=== PATIENT | male | born 1940 | race Caucasian/White ===

== ENCOUNTER → 2017-08-07 09:18 | Outpatient (CLI) | payer MEDICARE, OTHER, SELFPAY ==
[2017-08-07 10:13] LABS: PSA,Total- Diagnostic 2.21 ng/mL (0.0-4.0)
== END ==
PROVIDERS: Family Provider Family Medicine; PCP Family Medicine; Visit Provider Urology
DX: R97.20 Elevated prostate specific antigen [PSA] (principal)
CPT/HCPCS: 36415; 84153

== ENCOUNTER → 2017-10-17 08:33 | Outpatient (CLI) | payer MEDICARE, OTHER, SELFPAY ==
--- NOTE | 2017-10-17 13:00 | LES_PTH ---
PATIENT: EVAN HAMPTON LOC: [facility] U#:[id number] AGE/SX: 84/M ROOM: RE10/17/[address]: Dr. Barak Montero MD : 1940 BED: DIS: SPEC #: [id number] RECD: 10/18/17 11:48 STATUS: MIRELLA KINGA #: [id number] MIRIAN: 10/17/17 13:[address]: Barak Montero DEPT: SURGICAL PATHOLOGY RECD BY: Rusty Melvin ENTERED: 10/18/17 11:48 SP TYPE: Lesion OTHR DR: Dr. Emmanuel Montero III, MD Tissues: Skin of forearm, NOS Procedures: Surgery Specimen Level IV HEADER OPERATION: Excision left forearm lesion PRE-OP DIAGNOSIS: Left forearm lesion TISSUE SUBMITTED: Left forearm tissue MICROSCOPIC DIAGNOSIS Left forearm tissue, excisional biopsy: Focal dermal fibrosis, chronic inflammation and foreign body giant cell reaction, consistent with previous biopsy site. Actinic keratosis and solar elastosis. Negative for malignancy. KATJA:dusty 10/19/17 MICROSCOPIC DESCRIPTION Slides are reviewed. GROSS DESCRIPTION Received in fixative is one container labeled with the patient's name and designated left forearm. The specimen consists of a valdez-white skin ellipse measuring 3.7 x 1.5 cm and up to 0.5 cm in thickness. The specimen shows a valdez-white, flat healed scar measuring 0.6 x 0.2 cm. The specimen is serially sectioned and submitted entirely in three cassettes. Cassette one contains the tips of the skin ellipse. / KATJA:dusty 10/18/17 TC:5 CPT: 18843
== END ==
PROVIDERS: Family Provider Family Medicine; PCP Family Medicine; Visit Provider Surgery
DX: L90.5 Scar conditions and fibrosis of skin (principal); L57.0 Actinic keratosis; L57.8 Other skin changes due to chronic exposure to nonionizing radiation; W89.9XXA Exposure to unspecified man-made visible and ultraviolet light, initial encounter; Y92.9 Unspecified place or not applicable; Y99.9 Unspecified external cause status
CPT/HCPCS: 88305

== ENCOUNTER 2018-01-21 10:26 | Inpatient (IN) | payer MEDICARE, OTHER, SELFPAY ==
[2018-01-04 11:08] VITALS: BP 140/86; PULSE 67; RESP 17; TEMP 36.9; O2SAT 97; BMI 37.9
--- NOTE | 2018-01-04 11:41 | SDCEKG_ITS ---
Test Reason : Blood Pressure : / mmHG Vent. Rate : 058 BPM Atrial Rate : 058 BPM P-R Int : 202 ms QRS Dur : 092 ms QT Int : 430 ms P-R-T Axes : 031 003 005 degrees QTc Int : 422 ms Sinus bradycardia Cannot rule out Inferior infarct (cited on or before 22-JUN-2010) Abnormal ECG Confirmed by ELTON HUSTON, DEBBIE ([id number]), material expeditor TOR ESCOBAR ([id number]) on 01/07/2018 3:33:54 PM Referred By: Neftali Escobar Confirmed By:DEBBIE CONDE MD
[2018-01-21] VITALS (11 sets, daily range): BP systolic 113–153; BP diastolic 59–87; PULSE 57–66; RESP 16–18; TEMP 36.1–36.6; O2SAT 93–96; BMI 37.9
[2018-01-21] MEDS: Celecoxib 200 MG Capsule 400 MG PO (11:38)
[2018-01-21] MEDS: Acetaminophen 500 MG Tablet 1000 MG PO ×2 (11:38→22:02)
[2018-01-21] MEDS: oxyCODONE HCl Cr 10 MG Tablet PO (11:38)
[2018-01-21 12:35] LABS: Bedside Glucose 141 mg/dL (70-110)
--- NOTE | 2018-01-21 13:03 | PCM.CONS.U ---
Problem List (1) Underwood catheter in place Status: Acute Reason for Consult Date of Consultation: 01/21/18 Reason for Consultation: difficult underwood History of Present Illness: The patient is a 77 year old male who is having hip surgery request underwood placement, h/o penile cancer s/p partial penectomy v diff. underwood placement in the past. 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 Obesity (Chronic) E66.9 History of hypothyroidism (Chronic) Z86.39 GERD (gastroesophageal reflux disease) (Chronic) K21.9 Essential hypertension (Chronic) I10 Type II diabetes mellitus (Chronic) E11.9 Allergies No Known Allergies Allergy (Verified 01/04/18 11:01) Home Medications: Ambulatory Orders Medication Instructions Recorded Amlodipine [Norvasc] 10 mg PO DAILY 09/14/15 Bisoprol/Hydrochlorothiazide [Ziac 1 tab PO DAILY 09/14/15 10/6.25 MG Tablet] Finasteride [Proscar] 5 mg PO QHS 09/14/15 Lisinopril [Zestril] 40 mg PO DAILY 09/14/15 Omeprazole [Prilosec] 20 mg PO DAILY 09/14/15 Simvastatin [Zocor] 20 mg PO QHS 09/14/15 Tamsulosin HCl [Flomax] 0.4 mg PO DAILY 09/14/15 Venlafaxine HCl 75 mg PO QHS 09/14/15 levothyroxine 75 mcg tablet 100 mcg PO DAILY tab 09/04/17 Acetaminophen [Tylenol Extra 500 mg PO Q6H PRN PRN 01/04/18 Strength] Glimepiride [Amaryl] 2 mg PO DAILY 01/04/18 Surgical History: Surgical History (Last Updated 10/23/17 @ 15:45 by Aura Rojas) History of penile cancer (Acute) Z85.49 History of back surgery (Acute) Z98.890 11/2013 Status post right hip replacement (Acute) Z96.641 S/P rotator cuff repair (Acute) Z98.890 Right S/P cholecystectomy (Acute) Z90.49 S/p bilateral carpal tunnel release (Acute) Z98.890 s/p excision left forearm lesion Surgical History: cholecystectomy Smoking Status: Never smoker Review of Systems Constitutional: Denies: Chills, Fever, Weight Change HEENT: Denies: Head Aches, Sinus Congestion, Sinus Drainage Cardiovascular: Denies: Chest Pain, Palpitations Respiratory: Denies: Cough, Shortness of breath at rest, Sputum production Gastrointestinal: Denies: Abdominal Pain, Nausea, Vomiting Genitourinary: Denies: Dysuria Musculoskeletal: Denies: Joint Pain, Joint Tenderness Skin: Denies: Rash, Wounds Neurological: Denies: Numbness, Tingling, Focal weakness Psychiatric: Denies: Anxiety, Depression, Homicidal Ideations, Suicidal Ideations Hematologic/ Lymphatic: Denies: Easy Bruising, Easy Bleeding Physical Exam - Physical Exam Vital Signs Temp 97.8 F 01/21/18 11:30 Pulse 63 01/21/18 11:30 Resp 18 01/21/18 11:30 BP 153/87 H 01/21/18 11:30 Pulse Ox 95 01/21/18 11:30 Intake & Output 01/19/18 01/20/18 01/21/18 23:59 23:59 23:59 Weight: 103.4 kg General: Alert HEENT: Atraumatic Oral: Moist Mucosa Neck: Supple Lungs: Normal air movement Cardiovascular: Regular rate Abdomen: Soft Penis: - - partial penectomy, meatus small. Assessment/Plan All Active Problems (Last Updated 10/23/17 @ 15:45 by Aura Rojas) Underwood catheter in place (Acute) Squamous cell skin cancer (Acute) History of penile cancer (Acute) History of back surgery (Acute) Status post right hip replacement (Acute) S/P rotator cuff repair (Acute) S/P cholecystectomy (Acute) S/p bilateral carpal tunnel release (Acute) 14 fr underwood cath placed for surgery ok to d/c underwood post op once ambulatory. call with questions.
[2018-01-21] MEDS: Cefazolin 2 GM in 0.9% Normal Saline 100 ML IV (13:49)
--- NOTE | 2018-01-21 14:00 | HIP_PTH ---
PATIENT: EVAN HAMPTON LOC: [facility] U#:[id number] AGE/SX: 77/M ROOM: [facility] RE01/21/[address]: Dr. Sancho Hickman DO : 1940 BED: 1 DIS: 01/22/2018 SPEC #: [id number] RECD: 01/21/18 16:07 STATUS: MIRELLA REQ #: [id number] MIRIAN: 01/21/18 14:[address]: Neftali Escobar DEPT: SURGICAL PATHOLOGY RECD BY: Corby Madrid ENTERED: 01/22/18 08:29 SP TYPE: TOTAL HIP OTHR DR: MD Dr. Sancho Velásquez III, DO Dr. Nana Yaa Koram, MD Dr. Rodney Miller, MD Tissues: Hip, NOS Procedures: Decalcification bone/plaque Surgery Specimen Level IV Comments: @ Ordering doctor for DEC edited from to [email or web address] Diaz by BROOKLYN at 01/22/18 1556 @ Ordering doctor for SUIV edited from to @ by BROOKLYN at 01/22/18 1556 @ Submitting doctor edited from to [email or web address] Diaz by BROOKLYN at 01/22/18 1556 HEADER OPERATION: Left total hip arthroplasty PRE-OP DIAGNOSIS: Osteoarthritis left hip TISSUE SUBMITTED: Left femoral head bone and soft tissue MICROSCOPIC DIAGNOSIS Left femoral head, bone and soft tissue, total hemiarthroplasty: Femoral head with degenerative osteoarthritic changes. KATJA:dusty 01/25/18 MICROSCOPIC DESCRIPTION Slides are reviewed. GROSS DESCRIPTION Received is one container designated left femoral head bone and soft tissue. The specimen consists of a valdez femoral head with portion of femoral neck. The femoral head measures 5 x 5 x 4 cm and a portion of femoral neck measures up to 1 cm in length. The articular surface displays prominent osteophyte formation, eburnation and bone erosion. Also present in the specimen container are multiple irregular fragments of bone reamings measuring in aggregate 10 x 9 x 4 cm. Automotive Parts Counter Assistant sections are submitted in two cassettes after decalcification as follows: 1 ? bone reamings, 2 ? femoral head. / KATJA:dusty 01/22/18 TC:5 CPT: 87604, 89296
--- NOTE | 2018-01-21 15:16 | PCM.OP.BLANK ---
Operative Report Date of Procedure: 01/21/18 Preoperative diagnosis: Left hip primary osteoarthritis Postoperative diagnosis: Same Operation: Left total hip replacement surgery Surgeon: Dr. Neftali Escobar MD Manager Inventory: Loree Mojica PA-C Second public relations assistant Arlyn SAUCEDA Anesthesia: Spinal Anesthesiologist Dr. Almonte Special medications: IV [Ancef], IV Tranexamic acid Indications for surgery : Patient is a [ 77]-year-old [male] with a long-standing history of [left] severe hip pain that has failed adequate nonoperative treatment. Due to persistent pain and disability, they decided to proceed with hip replacement surgery. Appropriate informed consent was obtained and signed. Appropriate medical workup was performed preoperatively and patient was deemed safe for surgery by the anesthesia department as well. assistant women's basketball coach, physician public relations assistant, was utilized throughout the entire procedure. They were vital in helping with patient positioning, holding of retractors, exposing the tissues adequately for safe completion of the procedure including cutting of the bone, helping human resources operations specialist appropriate alignment and sizing of the components, implantation of the components, as well as wound closure, bandage application, and safe patient transfer. Without surgical corsetier, physician public relations assistant, surgical time would have been significantly increased, and surgical outcome would have been less optimal. Operative findings: Patient had severe arthritis of the involved hip joint. They underwent a small posterior approach to the hip. We utilized a size [2.5 press-fit Accolade stem] 127 degree neck angle, a press fit acetabular component size [52] titanium cluster, Trident X3 polyethylene liner with a 36 mm inner diameter, a LFIT femoral head size [36] with a +10 neck length. This reproduced their anatomy nicely. Clinically good leg lengths were noted. Good hip stability through range of motion with no undue pistoning. Standard wound closure in layers, followed by sarahy, followed by Mepilex dressing Details of procedure: Patient was taken to the operating room and transferred to the operating table. Given appropriate anesthetic agent by that department. Patient was then rolled into a lateral decubitus position with the involved painful hip up in the air. Appropriate timeouts had been performed. Hip had been appropriately marked with my initials. Padded anterior and posterior position was utilized. Axillary roll placed. LYNETTE hose and SCDs on the nonoperative limb utilized throughout the procedure. Tranexamic acid and IV antibiotics given preoperatively. Operative lower extremity was prepped padded and draped in the usual orthopedic sterile fashion for the procedure. I injected the pain relieving solution in the standard sterile technique of the soft tissues of the hip carefully. Incision was made curving over the tip of the greater trochanter posteriorly. Full thickness skin flaps are raised down on the fascia damir. Fascia damir was opened in length with our incision. Charnley self-retaining hip retractor was carefully placed by the surgeon. Leg was appropriately rotated and held by the public relations assistant. Retractor was used to lift the abductors anteriorly to visualize the piriformis tendon and external rotators. Area was infiltrated with pain relieving cocktail. Piriformis tendon and external rotators released off the greater trochanter with the Bovie. Tagging suture was placed in each of these separately. We then split the tissue superior to the piriformis tendon through capsule and onto the pelvis. Acetabular labrum was also divided. With traction and manipulation arthritic femoral head was dislocated from the acetabulum. Retractors were carefully placed around the femoral neck. Cutting guide was utilized to map out the proposed cut approximately 1 fingerbreadth above the lesser trochanter. This femoral neck cut was carried out with a saw. Arthritic femoral head removed and measured and inspected. Inferior acetabular retractor was placed by the surgeon, held by the public relations assistant. Bone hook utilized to pull the proximal femur anteriorly. Labrum removed from about the acetabulum a long knife. Tissue removed from the depth of the acetabulum with the Bovie. Arthritic acetabulum was noted. We began reaming with the appropriate sized reamer based on the measurement of the femoral head. Reaming was done with 45? of abduction, 20? of anteversion, reproducing there anatomy. Reaming was done incrementally up to the appropriate size creating a smooth cylindrical acetabulum and was done down to healthy bone. Trial acetabular component 1 millimeters smaller than the largest reamer was utilized with the outrigger device. Appropriate abduction and anteversion confirmed as well as size and position of cup. We irrigated with bulb syringe saline. Appropriate acetabular opponent was opened and hammered into position with the outrigger device, with 45? of abduction and 20 degrees of anteversion. We could see through the hole in the cup it was adequately down onto the bone in the pelvis. Good stability was noted. Trial liner with a 10? vasquez was appropriately positioned. Any anterior and/ or posterior osteophytes removed with an osteotome, rongure. Acetabular retractors removed. A proximal femoral elevator utilized. Held by the public relations assistant. We used a sharp awl entering down inside the bone of the proximal femur. Utilized the joo cutting osteotome in the proximal lateral greater trochanteric region. The fragment removed. Broaching was then done from the smallest broach, upto the appropriate size. Good stability was confirmed. We then trialed the construct with a standard neck length and appropriate sized femoral head on 127? angle neck. We were happy with the construct. Good stability to flexion, rotation by the public relations assistant. At this point trials removed. I now placed the appropriate polyethylene acetabular liner into a clean dry previously placed shell. This was hammered into position. Suction device was used to confirm its stability. We now exposed the proximal femur with appropriate retractors in place, held by the public relations assistant, actual femoral stem was checked, opened, and then hammered into the proximal femur and seated down to a similar position as the trial had. We now again trialed appropriate neck length upon. It was then opened. Now impacted the appropriate sized femoral head, neck construct onto the clean dried trunion. Was noted to be stable. Hip was inspected, and joint was reduced for a final time. Good hip stability and leg lengths noted. This was then irrigated with saline and cleaned. Next the remainder of the pain relieving solution was injected carefully throughout the soft tissues of the hip joint. Closure was carried out with a combination of #1 Vicryl, running #2 strata fix in the fascia damir, followed by mid layer #1 Vicryl with #1 strata fix running. Next running 0 strata fix, followed by skin sarahy, Xeroform, Mepilex dressing. We placed LYNETTE hose and SCD on the operative leg. Patient awoken from the anesthetic and transferred back to room bed in recovery room in satisfactory condition. Patient will be admitted for pain management, PT, IV antibiotics, medication for DVT prevention. Hospitalist consulted for postoperative medical management. Hopeful discharge to home in 1-3 days This note was generated with Triondation software. It may contain incorrect words, spelling, and punctuation that were not noted in checking the note before signing.
--- NOTE | 2018-01-21 15:22 | OP.PCM_ITS ---
Operative Report Date of Procedure: 01/21/18 Preoperative diagnosis: Left hip primary osteoarthritis Postoperative diagnosis: Same Operation: Left total hip replacement surgery Surgeon: Dr. Neftali Escobar MD Pearl Digger: Loree Mojica PA-C Second office services assistant Arlyn SAUCEDA Anesthesia: Spinal Anesthesiologist Dr. Almonte Special medications: IV [Ancef], IV Tranexamic acid Indications for surgery : Patient is a [ 77]-year-old [male] with a long- standing history of [left] severe hip pain that has failed adequate nonoperative treatment. Due to persistent pain and disability, they decided to proceed with hip replacement surgery. Appropriate informed consent was obtained and signed. Appropriate medical workup was performed preoperatively and patient was deemed safe for surgery by the anesthesia department as well. assistant manager bilingual, physician office services assistant, was utilized throughout the entire procedure. They were vital in helping with patient positioning, holding of retractors, exposing the tissues adequately for safe completion of the procedure including cutting of the bone, helping plastic parts fabricator appropriate alignment and sizing of the components, implantation of the components, as well as wound closure, bandage application, and safe patient transfer. Without surgical appliances salesperson, physician office services assistant, surgical time would have been significantly increased, and surgical outcome would have been less optimal. Operative findings: Patient had severe arthritis of the involved hip joint. They underwent a small posterior approach to the hip. We utilized a size [2.5 press-fit Accolade stem] 127 degree neck angle, a press fit acetabular component size [52] titanium cluster, Trident X3 polyethylene liner with a 36 mm inner diameter, a LFIT femoral head size [36] with a +10 neck length. This reproduced their anatomy nicely. Clinically good leg lengths were noted. Good hip stability through range of motion with no undue pistoning. Standard wound closure in layers, followed by sarahy, followed by Mepilex dressing Details of procedure: Patient was taken to the operating room and transferred to the operating table. Given appropriate anesthetic agent by that department. Patient was then rolled into a lateral decubitus position with the involved painful hip up in the air. Appropriate timeouts had been performed. Hip had been appropriately marked with my initials. Padded anterior and posterior position was utilized. Axillary roll placed. LYNETTE hose and SCDs on the nonoperative limb utilized throughout the procedure. Tranexamic acid and IV antibiotics given preoperatively. Operative lower extremity was prepped padded and draped in the usual orthopedic sterile fashion for the procedure. I injected the pain relieving solution in the standard sterile technique of the soft tissues of the hip carefully. Incision was made curving over the tip of the greater trochanter posteriorly. Full thickness skin flaps are raised down on the fascia damir. Fascia damir was opened in length with our incision. Charnley self-retaining hip retractor was carefully placed by the surgeon. Leg was appropriately rotated and held by the office services assistant. Retractor was used to lift the abductors anteriorly to visualize the piriformis tendon and external rotators. Area was infiltrated with pain relieving cocktail. Piriformis tendon and external rotators released off the greater trochanter with the Bovie. Tagging suture was placed in each of these separately. We then split the tissue superior to the piriformis tendon through capsule and onto the pelvis. Acetabular labrum was also divided. With traction and manipulation arthritic femoral head was dislocated from the acetabulum. Retractors were carefully placed around the femoral neck. Cutting guide was utilized to map out the proposed cut approximately 1 fingerbreadth above the lesser trochanter. This femoral neck cut was carried out with a saw. Arthritic femoral head removed and measured and inspected. Inferior acetabular retractor was placed by the surgeon, held by the office services assistant. Bone hook utilized to pull the proximal femur anteriorly. Labrum removed from about the acetabulum a long knife. Tissue removed from the depth of the acetabulum with the Bovie. Arthritic acetabulum was noted. We began reaming with the appropriate sized reamer based on the measurement of the femoral head. Reaming was done with 45? of abduction, 20? of anteversion, reproducing there anatomy. Reaming was done incrementally up to the appropriate size creating a smooth cylindrical acetabulum and was done down to healthy bone. Trial acetabular component 1 millimeters smaller than the largest reamer was utilized with the outrigger device. Appropriate abduction and anteversion confirmed as well as size and position of cup. We irrigated with bulb syringe saline. Appropriate acetabular opponent was opened and hammered into position with the outrigger device, with 45? of abduction and 20 degrees of anteversion. We could see through the hole in the cup it was adequately down onto the bone in the pelvis. Good stability was noted. Trial liner with a 10? vasquez was appropriately positioned. Any anterior and/ or posterior osteophytes removed with an osteotome, rongure. Acetabular retractors removed. A proximal femoral elevator utilized. Held by the office services assistant. We used a sharp awl entering down inside the bone of the proximal femur. Utilized the joo cutting osteotome in the proximal lateral greater trochanteric region. The fragment removed. Broaching was then done from the smallest broach, upto the appropriate size. Good stability was confirmed. We then trialed the construct with a standard neck length and appropriate sized femoral head on 127? angle neck. We were happy with the construct. Good stability to flexion, rotation by the office services assistant. At this point trials removed. I now placed the appropriate polyethylene acetabular liner into a clean dry previously placed shell. This was hammered into position. Suction device was used to confirm its stability. We now exposed the proximal femur with appropriate retractors in place, held by the office services assistant, actual femoral stem was checked, opened, and then hammered into the proximal femur and seated down to a similar position as the trial had. We now again trialed appropriate neck length upon. It was then opened. Now impacted the appropriate sized femoral head, neck construct onto the clean dried trunion. Was noted to be stable. Hip was inspected, and joint was reduced for a final time. Good hip stability and leg lengths noted. This was then irrigated with saline and cleaned. Next the remainder of the pain relieving solution was injected carefully throughout the soft tissues of the hip joint. Closure was carried out with a combination of #1 Vicryl, running #2 strata fix in the fascia damir, followed by mid layer #1 Vicryl with #1 strata fix running. Next running 0 strata fix, followed by skin sarahy, Xeroform, Mepilex dressing. We placed LYNETTE hose and SCD on the operative leg. Patient awoken from the anesthetic and transferred back to room bed in recovery room in satisfactory condition. Patient will be admitted for pain management, PT, IV antibiotics, medication for DVT prevention. Hospitalist consulted for postoperative medical management. Hopeful discharge to home in 1-3 days This note was generated with NebuAdation software. It may contain incorrect words, spelling, and punctuation that were not noted in checking the note before signing.
--- NOTE | 2018-01-21 16:24 | RAD_ITS ---
STUDY: X-RAY - PELVIS AND LEFT HIP REASON FOR EXAM: Male, 77 years old. Post op left hip arthroplasty TECHNIQUE: Radiological exam, hip, unilateral, with pelvis when performed; 2 or 3 views. COMPARISON: None. FINDINGS: There are postsurgical changes from bilateral total hip arthroplasties. The hardware is intact and alignment is satisfactory. There is no acute fracture or dislocation RAD/Hip Min 2 Views (Portable) IMPRESSION: Status post bilateral total hip arthroplasties with intact hardware in satisfactory alignment. Electronically Signed: Bryant Xiao, at 16:45 EDT Tel , Service support ,
[2018-01-21 17:06] LABS: Bedside Glucose 156 mg/dL (70-110)
[2018-01-21] MEDS: Tamsulosin HCl 0.4 MG Capsule PO (18:38)
[2018-01-21] MEDS: oxyCODONE 5 MG Tablet PO (18:38)
[2018-01-21 18:55] LABS: Bedside Glucose 180 mg/dL (70-110)
[2018-01-21] MEDS: Cefazolin 1 GM/50 ML BAG IV (19:44)
--- NOTE | 2018-01-21 20:36 | PCM.PN.HOSP ---
Patient Problems: Active and Suspected Problems (Last Updated 10/23/17 @ 15:45 by Aura Rojas) Kumar catheter in place (Acute) Subjective: Patient is a 77-year-old male with a past medical history of hypertension, type 2 diabetes mellitus, hypothyroidism, GERD, penile cancer status post penectomy and osteoarthritis. He was admitted for left hip surgery which he had on 01/21/2018. Hospitalist service was consulted for medical management afterwards. Today's postop day 0. Patient seen and examined in bed. He was with his and son at time of review. He had no complaints and felt well. He had no fever or chills, no shortness of breath, no cough or chest pain, no abdominal pain, no diarrhea vomiting. Review Of systems was otherwise negative. He had a Kumar catheter placed by urology today on account of difficult Kumar placement in the past. Vitals/I&O's: Vital Signs Temp Pulse Resp BP Pulse Ox 97.9 F 66 16 146/78 H 94 01/21/18 19:38 01/21/18 19:38 01/21/18 19:38 01/21/18 19:38 01/21/18 19:38 Oxygen Delivery Method Room Air Weight: 227 lb 15.327 oz Body Mass Index (BMI) 37.9 Finger Stick Blood Glucose 156 Intake and Output for Last 24 Hours 01/19/18 01/20/18 01/21/18 23:59 23:59 23:59 Intake Total 2400 / 2400 Output Total 70 / 70 Balance 2330 / 2330 General: Alert, Oriented x3, Cooperative, No apparent distress HEENT: Atraumatic, PERRLA, EOMI, Normocephalic Oral: Moist Mucosa Neck: Supple, No JVD, Negative Carotid Bruits Lungs: Clear to auscultation, Normal air movement, No rhonchi, No wheeze, No rales Cardiovascular: Regular rate, Regular Rhythm, Normal S1, Normal S2, No murmurs Abdomen: Bowel Sounds Present, Soft, Non Tender, Non-Distended, No Hepato-splenomegaly Extremities: No clubbing, No cyanosis, No edema, Capillary Refill Less than 3 Seconds Skin: No rashes, No breakdown Musculoskeletal: - - LLE bandaged. Able to wiggle toes, left dorsalis pedis pulse palpable Lymphatic: No Cervical, Supraclavicular, or Inguinal Adenopathy Neurological: Cranial nerves II-XII grossly intact Psych/Mental Status: Normal Affect, Appropriate, Alert and oriented to time, place, person, mood and affect Laboratory Results 01/21/18 11:33: POC Glucose 141 H 01/21/18 17:01: POC Glucose 156 H 01/21/18 18:20: POC Glucose 180 H Labs (Last 48 Hours) 01/21/18 01/21/18 01/21/18 11:33 17:01 18:20 POC Glucose 141 H 156 H 180 H Diagnostic Data Hip X-Ray 01/21/18 16:24 IMPRESSION: Status post bilateral total hip arthroplasties with intact hardware in satisfactory alignment. Electronically Signed: Bryant Xiao, at 16:45 EDT Tel , Service support , Current Medications Acetaminophen (Tylenol) 1,000 mg PO Q8 [facility] Amlodipine Besylate (Norvasc) 10 mg PO DAILY VILMA Atorvastatin Calcium (Lipitor) 10 mg PO QHS [facility] Bisoprolol Fumarate (Zebeta) 10 mg PO DAILY [facility] Finasteride (Proscar) 5 mg PO DAILY VILMA Glimepiride (Amaryl) 1 mg PO DAILY@0800 [facility] Hydrochlorothiazide (Hctz) 6.25 mg PO DAILY [facility] Lactated Ringer's () 1,000 mls @ 125 mls/hr IV .Q8H [facility] Cefazolin Sodium () 1 gm in 50 mls @ 100 mls/hr IV Q6H [facility] Stop: 01/22/18 08:29 Last Admin: 01/21/18 19:44 Dose: 100 mls/hr Ketorolac Tromethamine (Toradol) 15 mg IV Q6H PRN PRN PRN Reason: MILD-MOD PAIN (4-10/10) Stop: 01/26/18 18:22 Levothyroxine Sodium (Synthroid) 100 mcg PO DAILY@0600 [facility] Lisinopril (Zestril) 40 mg PO DAILY [facility] Morphine Sulfate (Ms Contin) 15 mg PO BID [facility] Ondansetron HCl (Zofran) 4 mg IV Q8H PRN PRN PRN Reason: NAUSEA Ondansetron HCl (Zofran) 4 mg IV Q8H PRN PRN PRN Reason: NAUSEA Oxycodone HCl (Oxyir) 5 mg PO Q4H PRN PRN PRN Reason: MILD-MOD PAIN (4-10/10) Last Admin: 01/21/18 18:38 Dose: 5 mg Pantoprazole Sodium (Protonix) 20 mg PO DAILY [facility] Promethazine HCl (Phenergan) 12.5 mg IV Q6H PRN PRN PRN Reason: NAUSEA/VOMITING Promethazine HCl (Phenergan) 12.5 mg IM Q6H PRN PRN; Protocol PRN Reason: NAUSEA/VOMITING Rivaroxaban (Xarelto) 10 mg PO DAILY@0600 [facility] Scopolamine HBr (Transderm-Scop) 1 patch TRANSDERM. Q3D [facility] Last Admin: 01/21/18 19:32 Dose: Not Given Senna/Docusate Sodium (Senokot-S, Christiane-Colace) 2 tablet PO BID [facility] Sodium Chloride () 5 - 30 ml IV UD PRN PRN Reason: SALINE FLUSH Tamsulosin HCl (Flomax) 0.4 mg PO DAILY@1730 [facility] Last Admin: 01/21/18 18:38 Dose: 0.4 mg Venlafaxine HCl (Effexor Xr) 75 mg PO DAILY [facility] Medical Necessity - Tobacco Use Smoking Status: Never smoker Assessment/Plan All Active Problems (Last Updated 10/23/17 @ 15:45 by Aura Rojas) Kumar catheter in place (Acute) Squamous cell skin cancer (Acute) History of penile cancer (Acute) History of back surgery (Acute) Status post right hip replacement (Acute) S/P rotator cuff repair (Acute) S/P cholecystectomy (Acute) S/p bilateral carpal tunnel release (Acute) 7-year-old male admitted with a complaint of left hip pain due to osteoarthritis. He had left total hip replacement today. Today's postop day 0. Hospitalist service consulted for medical management. 1. Left hip osteoarthritis s/p elective hip replacement- today is POD 0 Patient has no complaints. Was lying comfortably in bed. Management as per orthopedic team. On Tylenol ketorolac for pain. IV cefazolin, per Ortho. encourage incentive spirometry use PT/OT on board 2. Hypertension: Fairly controlled. BP running in 140s and 150s post op. On amlodipine 10 mg daily, lisinopril 40mg daily, bisoprolol 10mg daily and hydrochlorothiazide 6.25 mg daily. Will monitor and adjust as needed. 3. Diabetes mellitus type 2 On glimepiride 1 mg daily. Checks before meals at bedtime. Insulin sliding scale. 4. Hypothyroidism: on synthroid 100mcg daily 5. BPH with history of difficult replacement: Kumar catheter placed by urology today. Flomax 0.4 mg daily. 6. DVT prophylaxis; on SCDs; per ortho, to start xarelto 10mg daily tomorrow morning. 7. hyperLipidemia: On simvastatin Thank you for the courtesy of the consult. We will continue to follow with you. This note was generated with [employer] dictation software. It may contain incorrect words, spelling, and punctuation that were not noted in checking the note before signing. Code Visit Inpatient E&M: 24608 Subs Hosp L3
--- NOTE | 2018-01-21 20:44 | PN_ITS ---
Patient Problems: Active and Suspected Problems (Last Updated 10/23/17 @ 15:45 by Aura Rojas) Kumar catheter in place (Acute) Subjective: Patient is a 77-year-old male with a past medical history of hypertension, type 2 diabetes mellitus, hypothyroidism, GERD, penile cancer status post penectomy and osteoarthritis. He was admitted for left hip surgery which he had on 2017. Hospitalist service was consulted for medical management afterwards. Today's postop day 0. Patient seen and examined in bed. He was with his and son at time of review. He had no complaints and felt well. He had no fever or chills, no shortness of breath, no cough or chest pain, no abdominal pain, no diarrhea vomiting. Review Of systems was otherwise negative. He had a Kumar catheter placed by urology today on account of difficult Kumar placement in the past. Vitals/I&O's: Vital Signs Temp Pulse Resp BP Pulse Ox 97.9 F 66 16 146/78 H 94 01/21/18 19:38 01/21/18 19:38 01/21/18 19:38 01/21/18 19:38 01/21/18 19:38 Oxygen Delivery Method Room Air Weight: 227 lb 15.327 oz Body Mass Index (BMI) 37.9 Finger Stick Blood Glucose 156 Intake and Output for Last 24 Hours 01/19/18 01/20/18 01/21/18 23:59 23:59 23:59 Intake Total 2400 / 2400 Output Total 70 / 70 Balance 2330 / 2330 General: Alert, Oriented x3, Cooperative, No apparent distress HEENT: Atraumatic, PERRLA, EOMI, Normocephalic Oral: Moist Mucosa Neck: Supple, No JVD, Negative Carotid Bruits Lungs: Clear to auscultation, Normal air movement, No rhonchi, No wheeze, No rales Cardiovascular: Regular rate, Regular Rhythm, Normal S1, Normal S2, No murmurs Abdomen: Bowel Sounds Present, Soft, Non Tender, Non-Distended, No Hepato- splenomegaly Extremities: No clubbing, No cyanosis, No edema, Capillary Refill Less than 3 Seconds Skin: No rashes, No breakdown Musculoskeletal: - - LLE bandaged. Able to wiggle toes, left dorsalis pedis pulse palpable Lymphatic: No Cervical, Supraclavicular, or Inguinal Adenopathy Neurological: Cranial nerves II-XII grossly intact Psych/Mental Status: Normal Affect, Appropriate, Alert and oriented to time, place, person, mood and affect Laboratory Results 01/21/18 11:33: POC Glucose 141 H 01/21/18 17:01: POC Glucose 156 H 01/21/18 18:20: POC Glucose 180 H Labs (Last 48 Hours) 01/21/18 01/21/18 01/21/18 11:33 17:01 18:20 POC Glucose 141 H 156 H 180 H Diagnostic Data Hip X-Ray 01/21/18 16:24 IMPRESSION: Status post bilateral total hip arthroplasties with intact hardware in satisfactory alignment. Electronically Signed: Bryant iXao, at 16:45 EDT Tel , Service support , Current Medications Acetaminophen (Tylenol) 1,000 mg PO Q8 ON [facility] OF [facility] Amlodipine Besylate (Norvasc) 10 mg PO DAILY VILMA Atorvastatin Calcium (Lipitor) 10 mg PO QHS ON LICENSE OF [facility] Bisoprolol Fumarate (Zebeta) 10 mg PO DAILY ON [facility] OF [facility] Finasteride (Proscar) 5 mg PO DAILY [facility] Glimepiride (Amaryl) 1 mg PO DAILY@0800 ON [facility] OF [facility] Hydrochlorothiazide (Hctz) 6.25 mg PO DAILY ON [facility] OF [facility] Lactated Ringer's () 1,000 mls @ 125 mls/hr IV .Q8H ON [facility] OF [facility] Cefazolin Sodium () 1 gm in 50 mls @ 100 mls/hr IV Q6H ON [facility] OF [facility] Stop: 01/22/18 08:29 Last Admin: 01/21/18 19:44 Dose: 100 mls/hr Ketorolac Tromethamine (Toradol) 15 mg IV Q6H PRN PRN PRN Reason: MILD-MOD PAIN (4-10/10) Stop: 01/26/18 18:22 Levothyroxine Sodium (Synthroid) 100 mcg PO DAILY@0600 ON [facility] Lisinopril (Zestril) 40 mg PO DAILY ON [facility] Morphine Sulfate (Ms Contin) 15 mg PO BID ON [facility] Ondansetron HCl (Zofran) 4 mg IV Q8H PRN PRN PRN Reason: NAUSEA Ondansetron HCl (Zofran) 4 mg IV Q8H PRN PRN PRN Reason: NAUSEA Oxycodone HCl (Oxyir) 5 mg PO Q4H PRN PRN PRN Reason: MILD-MOD PAIN (4-10/10) Last Admin: 01/21/18 18:38 Dose: 5 mg Pantoprazole Sodium (Protonix) 20 mg PO DAILY ON [facility] Promethazine HCl (Phenergan) 12.5 mg IV Q6H PRN PRN PRN Reason: NAUSEA/VOMITING Promethazine HCl (Phenergan) 12.5 mg IM Q6H PRN PRN; Protocol PRN Reason: NAUSEA/VOMITING Rivaroxaban (Xarelto) 10 mg PO DAILY@0600 ON [facility] Scopolamine HBr (Transderm-Scop) 1 patch TRANSDERM. Q3D ON [facility] OF [facility] Last Admin: 01/21/18 19:32 Dose: Not Given Senna/Docusate Sodium (Senokot-S, Christiane-Colace) 2 tablet PO BID ON [facility] Sodium Chloride () 5 - 30 ml IV UD PRN PRN Reason: SALINE FLUSH Tamsulosin HCl (Flomax) 0.4 mg PO DAILY@1730 ON [facility] Last Admin: 01/21/18 18:38 Dose: 0.4 mg Venlafaxine HCl (Effexor Xr) 75 mg PO DAILY ON [facility] Medical Necessity - Tobacco Use Smoking Status: Never smoker Assessment/Plan All Active Problems (Last Updated 10/23/17 @ 15:45 by Aura Rojas) Kumar catheter in place (Acute) Squamous cell skin cancer (Acute) History of penile cancer (Acute) History of back surgery (Acute) Status post right hip replacement (Acute) S/P rotator cuff repair (Acute) S/P cholecystectomy (Acute) S/p bilateral carpal tunnel release (Acute) 7-year-old male admitted with a complaint of left hip pain due to osteoarthritis. He had left total hip replacement today. Today's postop day 0. Hospitalist service consulted for medical management. 1. Left hip osteoarthritis s/p elective hip replacement- today is POD 0 * Patient has no complaints. Was lying comfortably in bed. * Management as per orthopedic team. * On Tylenol ketorolac for pain. * IV cefazolin, per Ortho. * encourage incentive spirometry use * PT/OT on board * 2. Hypertension: * Fairly controlled. BP running in 140s and 150s post op. * On amlodipine 10 mg daily, lisinopril 40mg daily, bisoprolol 10mg daily and hydrochlorothiazide 6.25 mg daily. * Will monitor and adjust as needed. 3. Diabetes mellitus type 2 * On glimepiride 1 mg daily. Checks before meals at bedtime. Insulin sliding scale. * 4. Hypothyroidism: on synthroid 100mcg daily 5. BPH with history of difficult replacement: Kumar catheter placed by urology today. Flomax 0.4 mg daily. 6. DVT prophylaxis; on SCDs; per ortho, to start xarelto 10mg daily tomorrow morning. 7. hyperLipidemia: On simvastatin Thank you for the courtesy of the consult. We will continue to follow with you. This note was generated with [employer] dictation software. It may contain incorrect words, spelling, and punctuation that were not noted in checking the note before signing. Code Visit Inpatient E&M: 94582 Subs Hosp L3
[2018-01-21] MEDS: Atorvastatin Calcium 10 MG Tablet PO (22:02)
[2018-01-21] MEDS: Senna/Docusate Sodium 1 Tablet 2 TABLET PO (22:02)
[2018-01-21] MEDS: morphine SR 15 MG Tablet PO (22:06)
[2018-01-21] MEDS: Insulin Lispro 100 UNIT/ML INSULN.PEN SQ (22:07)
[2018-01-21] MEDS: Lactated Ringers 1,000 ML 125 ML IV (22:08)
[2018-01-21 22:16] LABS: Bedside Glucose 217 mg/dL (70-110)
[2018-01-22] MEDS: oxyCODONE 5 MG Tablet PO (00:25)
[2018-01-22] MEDS: Ketorolac 15 MG/ML Vial IV (01:02)
[2018-01-22 02:25] VITALS: BP 144/82; PULSE 63; RESP 18; TEMP 36.8; O2SAT 95
[2018-01-22] MEDS: Cefazolin 1 GM/50 ML BAG IV ×2 (02:26→08:22)
[2018-01-22 06:18] LABS: Hematocrit 36.8 % (40-54); Hemoglobin 11.9 g/dl (13.0-16.5); Mean Corp Hgb Conc 32.3 g/gl (32-36); Mean Corpuscular Hgb 28.8 pg (27.0-32.0); Mean Corpuscular Volume 89.1 fL (80-94); Mean Platelet Vol. 9.8 fl (6.2-12.0); Platelet Count 216 K/mm3 (150-450); RBC Distribution Width CV 14.3 % (11.6-14.6); RBC Distribution Width SD 46.5 fl (35.1-43.9); Red Blood Count 4.13 M/mm3 (4.6-6.2); White Blood Count 8.1 K/mm3 (4.4-11.0)
[2018-01-22 06:22] LABS: Scan Indicated on CBC? Y/N NO
[2018-01-22 06:24] LABS: Anion Gap 8 (5-15); BUN 20 mg/dL (7-18); BUN/Creat Ratio 14.2 RATIO (10-20); Calcium,Total 8.2 mg/dL (8.5-10.1); Chloride 103 mmol/L (98-107); Creatinine, Serum 1.41 mg/dL (0.70-1.30); EST Glomerular Filtration Rate 52 mL/min (>60); Est Glom Filt Rate - Afr Amer 63 mL/min (>60); Estimated Creatinine Clearance 39.38 ml/min; Glucose 134 mg/dL (74-106); Potassium 3.3 mmol/L (3.5-5.1); Sodium Level 141 mmol/L (136-145)
[2018-01-22] MEDS: Levothyroxine 100 MCG Tablet PO (06:37)
[2018-01-22] MEDS: Acetaminophen 500 MG Tablet 1000 MG PO (06:37)
[2018-01-22] MEDS: Rivaroxaban 10 MG Tablet PO (06:38)
[2018-01-22 06:45] LABS: Bedside Glucose 139 mg/dL (70-110)
--- NOTE | 2018-01-22 07:09 | PCM.DC.THR ---
Discharge Diet: 1800 Calorie Control Diet, Carb Control Diet Discharge Activity: May Not Drive, May not drive while taking narcotic pain medications., Use Walker May shower in (days): 5 - if no drainage from incision Weight Bearing Status: Weight bearing as tolerated Call your doctor if your incision/area has: Continuous Slow Oozing, Sudden Increased Bleeding, Increased Pain/ Swelling, Increased Redness, Foul Smelling Discharge Call your doctor if you observe: Fever of 101 or Higher, Inability to urinate, Inability to have a bowel movement, Shortness of breath, Chest pain Remove Dressing in (days):: 5 Catheter: Kumar to leg bag Allergies/Adverse Reactions: Allergies No Known Allergies Allergy (Verified 01/04/18 11:01) Medications to take at Discharge Amlodipine [Norvasc] 10 mg PO DAILY 09/14/15 Bisoprol/Hydrochlorothiazide [Ziac 10/6.25 MG (Beta Jordyn)] 1 tab PO DAILY 09/14/15 Finasteride [Proscar] 5 mg PO QHS 09/14/15 Lisinopril [Zestril] 40 mg PO DAILY 09/14/15 Omeprazole [Prilosec] 20 mg PO DAILY 09/14/15 Simvastatin [Zocor] 20 mg PO QHS 09/14/15 Tamsulosin HCl [Flomax] 0.4 mg PO DAILY 09/14/15 Venlafaxine HCl 75 mg PO QHS 09/14/15 levothyroxine 75 mcg tablet 100 mcg PO DAILY tab 09/04/17 Glimepiride [Amaryl] 2 mg PO DAILY 01/04/18 Aspirin E.C. [Ecotrin] 325 mg PO BID 14 Days #28 tab 01/22/18 Hydrocodone/Acetaminophen [[place] 5-325 Tablet] 1 - 2 ea PO Q4H PRN PRN 7 Days #56 tab 01/22/18 Senna/Docusate Sodium [Senokot-S] 2 tab PO BID #30 tab 01/22/18 morphine SR tablet [Ms Contin] 15 mg PO BID 7 Days #14 tab 01/22/18 The following prescriptions were given: Hydrocodone/Acetaminophen [[place] 5-325 Tablet] 1 - 2 ea PO Q4H PRN PRN 7 Days #56 tab PRN Reason: Pain Aspirin E.C. [Ecotrin] 325 mg PO BID 14 Days #28 tab morphine SR tablet [Ms Contin] 15 mg PO BID 7 Days #14 tab Senna/Docusate Sodium [Senokot-S] 2 tab PO BID #30 tab Primary Care Physician: Emmanuel Montero III, MD [Primary Care Provider] - Test Results: Test results from this visit will be discussed in further detail at your follow-up appointment, if applicable.
--- NOTE | 2018-01-22 07:18 | DCINST_ITS ---
Discharge Diet: 1800 Calorie Control Diet, Carb Control Diet Discharge Activity: May Not Drive, May not drive while taking narcotic pain medications., Use Walker May shower in (days): 5 - if no drainage from incision Weight Bearing Status: Weight bearing as tolerated Call your doctor if your incision/area has: Continuous Slow Oozing, Sudden Increased Bleeding, Increased Pain/ Swelling, Increased Redness, Foul Smelling Discharge Call your doctor if you observe: Fever of 101 or Higher, Inability to urinate, Inability to have a bowel movement, Shortness of breath, Chest pain Remove Dressing in (days):: 5 Catheter: Kumar to leg bag Allergies/Adverse Reactions: Allergies No Known Allergies Allergy (Verified 01/04/18 11:01) Medications to take at Discharge Amlodipine [Norvasc] 10 mg PO DAILY 09/14/15 Bisoprol/Hydrochlorothiazide [Ziac 10/6.25 MG (Beta Jordyn)] 1 tab PO DAILY Finasteride [Proscar] 5 mg PO QHS 09/14/15 Lisinopril [Zestril] 40 mg PO DAILY 09/14/15 Omeprazole [Prilosec] 20 mg PO DAILY 09/14/15 Simvastatin [Zocor] 20 mg PO QHS 09/14/15 Tamsulosin HCl [Flomax] 0.4 mg PO DAILY 09/14/15 Venlafaxine HCl 75 mg PO QHS 09/14/15 levothyroxine 75 mcg tablet 100 mcg PO DAILY tab 09/04/17 Glimepiride [Amaryl] 2 mg PO DAILY 01/04/18 Aspirin E.C. [Ecotrin] 325 mg PO BID 14 Days #28 tab 01/22/18 Hydrocodone/Acetaminophen [[place] 5-325 Tablet] 1 - 2 ea PO Q4H PRN PRN 7 Days # 56 tab 01/22/18 Senna/Docusate Sodium [Senokot-S] 2 tab PO BID #30 tab 01/22/18 morphine SR tablet [Ms Contin] 15 mg PO BID 7 Days #14 tab 01/22/18 The following prescriptions were given: Hydrocodone/Acetaminophen [[place] 5-325 Tablet] 1 - 2 ea PO Q4H PRN PRN 7 Days # 56 tab PRN Reason: Pain Aspirin E.C. [Ecotrin] 325 mg PO BID 14 Days #28 tab morphine SR tablet [Ms Contin] 15 mg PO BID 7 Days #14 tab Senna/Docusate Sodium [Senokot-S] 2 tab PO BID #30 tab Primary Care Physician: Emmanuel Montero III, MD [Primary Care Provider] - Test Results: Test results from this visit will be discussed in further detail at your follow- up appointment, if applicable.
--- NOTE | 2018-01-22 07:19 | PCM.PN.ORT ---
Patient Problems: Active and Suspected Problems (Last Updated 10/23/17 @ 15:45 by Aura Rojas) Status post total hip replacement, left (Acute) Kumar catheter in place (Acute) Subjective: Patient states his left hip is feeling fine. He did have pain last night that has resolved. He is hoping to be discharged to home today. He denies chest pain or shortness of breath. No fever or chills. No productive cough. He plans to remove the Kumar catheter as he discussed with his urologist and discuss further issues with him as needed. Objective: Left hip bandages on clean and dry. Clinically leg lengths are equal. No calf pain or swelling bilaterally. Negative Homans sign bilaterally. Legs are neurovascularly intact. Good active motion toes and ankles. Normal sensation. No pain with axial loading of the hips or hip rotation gently. LYNETTE hose and SCDs are on. X-rays, AP pelvis, lateral left hip shows press-fit total hip replacement in good position without obvious loosening failure fracture. Laboratory work and vital signs reviewed Note from urologist and hospitalist reviewed - Physical Exam Vital Signs Temp Pulse Resp BP Pulse Ox 98.3 F 63 18 144/82 H 95 01/22/18 02:25 01/22/18 02:25 01/22/18 02:25 01/22/18 02:25 01/22/18 02:25 Oxygen Delivery Method Room Air Weight: 103.4 kg Body Mass Index (BMI) 37.9 Finger Stick Blood Glucose 156 Intake and Output for Last 24 Hours 01/20/18 01/21/18 01/22/18 23:59 23:59 23:59 Intake Total 2400 / 2400 1427 / 1427 Output Total 70 / 70 2900 / 2900 Balance 2330 / 2330 -1473 / -1473 Laboratory Tests Past 24 Hrs 01/22/18 01/22/18 05:30 05:30 WBC 8.1 RBC 4.13 L Hgb 11.9 L Hct 36.8 L MCV 89.1 MCH 28.8 MCHC 32.3 RDW 14.3 RDW Differential 46.5 H Plt Count 216 MPV 9.8 Sodium 141 Potassium 3.3 L Chloride 103 Carbon Dioxide 30.0 Anion Gap 8 BUN 20 H Creatinine 1.41 H Estim Creat Clear Calc 39.38 Est GFR (MDRD) Af Amer 63 Est GFR (MDRD) Non-Af 52 L BUN/Creatinine Ratio 14.2 Glucose 134 H Calcium 8.2 L POC Glucose 01/22/18 01/21/18 01/21/18 06:36 22:02 18:20 POC Glucose 139 H 217 H 180 H 01/21/18 01/21/18 17:01 11:33 POC Glucose 156 H 141 H Medical Necessity - Tobacco Use Smoking Status: Never smoker Assessment/Plan All Active Problems (Last Updated 10/23/17 @ 15:45 by Aura Rojas) Status post total hip replacement, left (Acute) Kumar catheter in place (Acute) Squamous cell skin cancer (Acute) History of penile cancer (Acute) History of back surgery (Acute) Status post right hip replacement (Acute) S/P rotator cuff repair (Acute) S/P cholecystectomy (Acute) S/p bilateral carpal tunnel release (Acute) Left total hip replacement yesterday. Continue with ice. Narcotic pain medications as needed. Xarelto for DVT prevention while in hospital. We will switch to aspirin twice daily at home. Continue monitoring his blood sugars. Continue with LYNETTE castro SCDs while in hospital. Incentive spirometer at home as well. Follow-up with urologist, primary care physician as needed. Follow-up with orthopedics next week as scheduled. He understands hip dislocation precautions. He understands wound care instructions as well as medication prescriptions. All of his questions answered. He would like to be discharged home today. Physical therapy been ordered
[2018-01-22] MEDS: Glimepiride 1 MG Tablet PO (08:21)
[2018-01-22] MEDS: Bisoprolol Fumarate 5 MG Tablet 10 MG PO (10:46)
[2018-01-22] MEDS: morphine SR 15 MG Tablet PO (10:46)
[2018-01-22] MEDS: Lisinopril 40 MG Tablet PO (10:46)
[2018-01-22] MEDS: amLODIPine 10 MG Tablet PO (10:47)
[2018-01-22] MEDS: Senna/Docusate Sodium 1 Tablet 2 TABLET PO (10:47)
[2018-01-22] MEDS: Pantoprazole Sodium 20 MG Tablet PO (10:47)
[2018-01-22] MEDS: Finasteride 5 MG Tablet PO (10:47)
[2018-01-22] MEDS: Venlafaxine XR 75 MG Capsule PO (10:47)
[2018-01-22] MEDS: hydroCHLOROthiazide 25 MG Tablet 6.25 MG PO (10:47)
[2018-01-22 11:00] VITALS: BP 142/76; PULSE 80; RESP 18; TEMP 36.6; O2SAT 94
[2018-01-22 12:00] LABS: Bedside Glucose 177 mg/dL (70-110)
--- NOTE | 2018-01-22 12:25 | CASEMGMT ---
KELLY BRANNON Face to Face with patient for initial transition planning/care coordination assessment. RN SALUD introduced self and role at [facility]. Patient sitting in chair, alert and oriented. Patient willing to participate in assessment and is able to answer all questions appropriately. Care providers, pharmacy, and demographics verified. Patient lives with in a ranch style home with 2 steps to enter home. Patient has walker, raised toilet seat, cane, and hip kit at home. Patient wishes to discharge home and is setup with [facility] for outpatient therapy and patient is arranging transportation. Patient states he has no further needs or concerns at this time. CM to follow for discharge planning needs that may arise. Disposition Plan: Patient to discharge home with outpatient therapy, family support, and follow-up plans in place.
== END 2018-01-22 13:50 | disposition home or self-care (01) | DRG 470 ==
PROVIDERS: Admitting Provider Orthopaedic Surgery; Family Provider Family Medicine; PCP Family Medicine; Visit Provider Internal Medicine
PROC: 0SRB0JZ Replacement of Left Hip Joint with Synthetic Substitute, Open Approach (ICD-10-PCS; CPT 27130; principal; 2018-01-21 12:35)
DX: M16.12 Unilateral primary osteoarthritis, left hip (principal); I10 Essential (primary) hypertension; E11.9 Type 2 diabetes mellitus without complications; E03.9 Hypothyroidism, unspecified; K21.9 Gastro-esophageal reflux disease without esophagitis; N40.0 Benign prostatic hyperplasia without lower urinary tract symptoms; E78.5 Hyperlipidemia, unspecified; E66.9 Obesity, unspecified; Z68.37 Body mass index [BMI] 37.0-37.9, adult; Z85.49 Personal history of malignant neoplasm of other male genital organs
CPT/HCPCS: 36415; 73502; 80048; 82962; 85027; 87077; 87081; 88305; 88311; 93005; 97162; 97165; 97530; C1776; J7120

== ENCOUNTER 2019-03-19 12:11 | Emergency (ER) | payer MEDICARE, SELFPAY ==
[2019-03-19 12:13] VITALS: BP 137/77; PULSE 81; RESP 18; TEMP 36.9; O2SAT 96; BMI 36.3
--- NOTE | 2019-03-19 12:18 | ED.RN ---
PT REPORTS INTERMITTENT CHEST PAIN. DENIES CHEST PAIN AT THIS TIME. RESPIRATORY THERAPY MADE AWARE FOR EKG.
--- NOTE | 2019-03-19 12:22 | EKG12_ITS ---
Test Reason : SOB,CP Blood Pressure : / mmHG Vent. Rate : 079 BPM Atrial Rate : 079 BPM P-R Int : 228 ms QRS Dur : 096 ms QT Int : 398 ms P-R-T Axes : -18 007 014 degrees QTc Int : 456 ms Sinus rhythm with 1st degree A-V block Otherwise normal ECG Confirmed by ELROY HUSTON, ALINA ([id number]), photography editor MEGAN MILLER ([id number]) on 03/21/2019 1:40:15 PM Referred By: JORDI Confirmed By:BRIA ABBASI MD
--- NOTE | 2019-03-19 12:49 | RAD_ITS ---
STUDY: X-RAY CHEST REASON FOR EXAM: Male, 78 years old. Chest pain. Fatigue. TECHNIQUE: Single AP portable view of the chest. COMPARISON: Comparison is made with prior study dated December 10, 2012. FINDINGS: Scattered calcified granulomas. There is no demonstrated pleural abnormality. Normal size heart. Normal mediastinum and sebastian. Normal visualized pulmonary arteries. There is atherosclerotic calcification of the aortic arch with tortuosity. There are diffuse degenerative changes of the visualized thoracic spine. There is degenerative osteoarthritis of the bilateral shoulders. There is no demonstrated abnormality of the visualized soft tissue structures of the upper abdomen. RAD/Chest 1 View (Portable) IMPRESSION: No acute abnormality is seen. Electronically Signed: Armand Patrick, at 13:12 EDT , Service support ,
[2019-03-19 12:55] VITALS: BP 138/97; PULSE 76; RESP 18; O2SAT 94
--- NOTE | 2019-03-19 13:14 | CT_ITS ---
STUDY: CT ABDOMEN AND PELVIS WITHOUT CONTRAST REASON FOR EXAM: Male, 78 years old. Fever and abdominal pain RADIATION DOSAGE (If Supplied By Facility): CTDIvol = ( 31.26 ) mGy, DLP = ( 1518.85 ) mGycm TECHNIQUE: Transaxial images were obtained from the dome of the diaphragm to the symphysis pubis without oral contrast, and without intravenous contrast. Sagittal and coronal images were reconstructed. Individualized dose optimization techniques were used for this CT. COMPARISON: None. FINDINGS: Tiny calcified granuloma in right lower lobe.. The visualized portions of the heart are within normal limits. Small hiatal hernia is noted Normal liver. Gallbladder has been removed surgically. Normal spleen. Normal pancreas. Right adrenal is normal. 2.5 cm left adrenal nodule of uncertain etiology but may be better assessed with MRI Tiny nonobstructing right renal calculus is noted. There are multiple cysts appearing sizes. 2 of the cysts demonstrate partial rim calcification in one appears slightly hyperattenuated likely hemorrhagic. Tiny nonobstructing calculus is seen in the left kidney. There is also a larger nonobstructing calculus at the ureteropelvic junction measuring approximate 7 mm in size.. There are multiple renal cysts.. Normal visualized stomach. Mild nonspecific ileus. Diffuse diverticular changes in the descending and sigmoid colon without evidence for acute diverticulitis. The appendix is visualized and appears normal. Atherosclerotic changes of the aorta without evidence for aneurysm. Normal inferior vena cava. Normal retroperitoneum. Nonspecific enlargement of the prostate impinging upon the base of bladder which is mildly thick-walled. Bilateral fat-containing inguinal hernias are noted.. Lumbar spine demonstrates degenerative change. Postsurgical changes at L4-5 status post fusion and bilateral hip prostheses are noted CT/Abdomen/Pelvis without Cont IMPRESSION: Bilateral nephrolithiasis and multiple cysts of varying sizes. Nonobstructing calculus at the ureteropelvic junction in the left kidney Diverticular changes of the descending and sigmoid colon without evidence for acute diverticulitis Status post cholecystectomy Other findings as above Electronically Signed: Fredrick Ruiz MD at 16:56 EDT , Service support ,
--- NOTE | 2019-03-19 13:16 | ED.VIS.GEN ---
History of Present Illness Chief Complaint: General Illness Detail of Chief Complaint: Dizzy, fever, chills Informant: Patient, Family Onset: Days Current Severity: Mild Maximum Severity: Moderate Narrative: Patient presents with 5-day history of not feeling well. He states last Sunday he felt woozy in the head. He has not had much of an appetite and had decreased p.o. intake. He has some slight nausea. He denies shortness of breath or cough. He states his abdomen is slightly uncomfortable, but he has no focal pain. Last 3 evenings he has had fever and chills. Past Medical History - Allergies and Home Meds Allergies/Adverse Reactions: Allergies No Known Allergies Allergy (Verified 03/19/19 12:13) Primary Care Physician: Emmanuel Montero III, MD [Primary Care Provider] - 3-5 Days if not improving Prior records reviewed: Yes Past Medical History: - - Reviewed Surgical History: cholecystectomy Lives: With Family Smoking Status: Never smoker Review of Systems General: Denies: Chills, Fever Eyes: Denies: Visual changes - bilaterally ENT: Denies: Bilateral ear pain Cardiovascular: Denies: Chest pain Respiratory: Denies: Dyspnea, Cough Gastrointestinal: Reports: Abdominal pain, Nausea. Denies: Vomiting, Diarrhea Genitourinary: Denies: Dysuria Musculoskeletal: Denies: Neck pain, Back pain, Swelling, Extremity Pain Skin: Denies: Wounds Neurological: Denies: Headache Hematologic: Denies: Easy bruising Allergy: Denies: Uticaria, Swelling of the mouth Physical Exam Vital Signs/Narrative: Vital Signs Temp Pulse Resp BP Pulse Ox 03/19/19 12:55 76 18 138/97 H 94 03/19/19 12:13 98.5 F 81 18 137/77 H 96 Inital Vital Signs reviewed: Yes General: Well nourished, Well developed Head: Normocephalic ENT: Moist mucous membranes Neck: Supple Cardiovascular: Regular rate, Regular rhythm Respiratory: No distress, CTA bilaterally Abdomen: Soft, Normal bowel sounds, Tender - Mild diffuse tenderness. Negative for: Guarding, Rebound tenderness Extremities: Nontender Skin: Normal color Neurological: Alert, Oriented x3 Psychological: Normal affect Diagnostic/Tx/Re-eval Impressions Chest X-Ray 03/19/19 12:49 IMPRESSION: No acute abnormality is seen. Electronically Signed: Armand Patrick, at 13:12 EDT , Service support , Abdomen/Pelvis CT 03/19/19 13:14 IMPRESSION: Bilateral nephrolithiasis and multiple cysts of varying sizes. Nonobstructing calculus at the ureteropelvic junction in the left kidney Diverticular changes of the descending and sigmoid colon without evidence for acute diverticulitis Status post cholecystectomy Other findings as above Electronically Signed: Fredrick Ruiz MD at 16:56 EDT , Service support , 03/19/19 12:49 Chest 1 View (Portable) [RAD] Stat 03/19/19 13:14 Abdomen/Pelvis without Cont [CT] Stat Laboratory Results 03/19/19 03/19/19 14:55 14:55 WBC 4.3 L RBC 4.77 Hgb 13.3 Hct 42.1 MCV 88.3 MCH 27.9 MCHC 31.6 L RDW Std Deviation 50.8 H RDW Coeff of Reyna 15.6 H Plt Count 178 MPV 9.9 Immature Gran % (Auto) 1.200 H Neut % (Auto) 67.9 Lymph % (Auto) 20.3 Denali % (Auto) 9.2 Eos % (Auto) 0.7 Baso % (Auto) 0.7 Absolute Neuts (auto) 3.0 Absolute Lymphs (auto) 0.88 Nucleated RBC % 0 Sodium 135 L Potassium 3.1 L Chloride 99 Carbon Dioxide 30.0 Anion Gap 6 BUN 22 H Creatinine 1.85 H Estim Creat Clear Calc 31.76 Est GFR (MDRD) Af Amer 46 L Est GFR (MDRD) Non-Af 38 L BUN/Creatinine Ratio 11.9 Glucose 118 H Calcium 8.9 Total Bilirubin 0.70 Direct Bilirubin 0.18 AST 39 H ALT 39 Alkaline Phosphatase 87 Troponin I < 0.015 Total Protein 8.1 Albumin 3.5 Globulin 4.6 H Lipase 233 - EKG Initial EKG Interpretation: Sinus Rhythm - Sinus at 79 with no acute ischemia. - Medical Decision Making Patient was given IV fluids here. On return of his blood work he was given oral potassium replacement. Test results are discussed with the patient and his at bedside. At this time I see no focal findings for source of infection. He had a urinalysis at urgent care that was unremarkable. He may very well have viral syndrome. Blood cultures will be sent and they were advised he would receive a phone call if this is abnormal. They will continue to monitor his symptoms at home. He will be given potassium replacement over the next 3 days. ED Disposition - Plan for ED Patient: Disposition: Home or Assisted Living Diagnosis: Viral syndrome Instructions: Hypokalemia, VIRAL SYNDROME (Adult) Prescriptions: Potassium Chloride [K-Dur] 20 meq PO BID #6 tab Prescription Printed Referrals: Emmanuel Montero III, MD [Primary Care Provider] - 3-5 Days if not improving
[2019-03-19 13:17] VITALS: BP 138/97; PULSE 76; RESP 18; TEMP 36.9; O2SAT 94
[2019-03-19 14:13] VITALS: BP 131/80; PULSE 77; RESP 14
[2019-03-19] MEDS: 0.9% Normal Saline 1,000 ML 150 ML IV (14:46)
[2019-03-19 15:05] LABS: Absolute Lymphocyte Count 0.88 X10^3/uL (0.83-4.51); Basophil# 0.03 X10^3/uL; Basophil% 0.7 % (0-1); Eosinophil# 0.03 X10^3/uL; Eosinophils% 0.7 % (0-5); Hematocrit 42.1 % (40-54); Hemoglobin 13.3 g/dL (13.0-16.5); Lymphocyte # 0.88 X10^3/ul (4.0); Lymphocyte % 20.3 % (19-41); Mean Corp Hgb Conc 31.6 g/dL (32-36); Mean Corpuscular Hgb 27.9 pg (27.0-32.0); Mean Corpuscular Volume 88.3 fL (80-94); Mean Platelet Vol. 9.9 fl (6.2-12.0); Monocyte% 9.2 % (0-10); NRBC Flagged by Analyzer 0 % (0-5); Neutrophil # 2.95 X10^3/uL (2.7-7.7); Neutrophil % 67.9 % (47-70); Platelet Count 178 K/mm3 (150-450); RBC Distribution Width CV 15.6 % (11.6-14.6); RBC Distribution Width SD 50.8 fl (35.1-43.9); Red Blood Count 4.77 M/mm3 (4.6-6.2); White Blood Count 4.3 K/mm3 (4.4-11.0)
[2019-03-19 15:21] LABS: AST(SGOT) 39 U/L (15-37); Alanine Aminotransfer ALT/SGPT 39 U/L (16-61); Albumin, Serum 3.5 g/dL (3.2-5.0); Alkaline Phosphatase 87 U/L (45-117); Anion Gap 6 (5-15); BUN 22 mg/dL (7-18); BUN/Creat Ratio 11.9 RATIO (10-20); Bilirubin, Direct 0.18 mg/dL (0.00-0.30); Calcium,Total 8.9 mg/dL (8.5-10.1); Chloride 99 mmol/L (98-107); Creatinine, Serum 1.85 mg/dL (0.70-1.30); EST Glomerular Filtration Rate 38 mL/min (>60); Est Glom Filt Rate - Afr Amer 46 mL/min (>60); Estimated Creatinine Clearance 31.76 ml/min; Globulin 4.6 g/dL (2.2-4.2); Glucose 118 mg/dL (74-106); Lipase 233 U/L (73-393); Potassium 3.1 mmol/L (3.5-5.1); Protein, Total 8.1 g/dL (6.4-8.2); Sodium Level 135 mmol/L (136-145)
[2019-03-19 15:57] VITALS: BP 155/82; PULSE 77; RESP 18; O2SAT 94
[2019-03-19 17:26] VITALS: BP 147/80; PULSE 80; RESP 18
== END 2019-03-19 17:27 | disposition home or self-care (01) ==
PROVIDERS: Emergency Provider Emergency Medicine; Family Provider Family Medicine; PCP Family Medicine
DX: B34.9 Viral infection, unspecified (principal); Z90.49 Acquired absence of other specified parts of digestive tract; N20.1 Calculus of ureter
CPT/HCPCS: 71045; 74176; 80048; 80076; 83690; 84484; 85025; 87040; 93005; 99285; J7030

== ENCOUNTER → 2020-04-28 14:30 | Outpatient (CLI) | payer MEDICARE, SELFPAY ==
--- NOTE | 2020-04-28 | LES_PTH ---
PATIENT: EVAN HAMPTON LOC: [facility] U#:[id number] AGE/SX: 84/M ROOM: RE04/28/[address]: Dr. Barak Montero MD : 1940 BED: DIS: SPEC #: [id number] RECD: 04/29/20 06:49 STATUS: MIRELLA KINGA #: [id number] MIRIAN: 04/28/20 00:[address]: Barak Montero DEPT: SURGICAL PATHOLOGY RECD BY: Rusty Melvin ENTERED: 04/29/20 10:29 SP TYPE: Lesion OTHR DR: Dr. Emmanuel Montero III, MD Tissues: Skin of forearm, NOS Procedures: Surgery Specimen Level IV HEADER OPERATION: Excision skin lesion right forearm PRE-OP DIAGNOSIS: Neoplasm right arm TISSUE SUBMITTED: Right forearm tissue MICROSCOPIC DIAGNOSIS Right forearm skin lesion, excisional biopsy: Inflamed actinic keratosis and solar elastosis. Negative for malignancy. SJ:dusty 04/30/20 MICROSCOPIC DESCRIPTION Slides are reviewed. GROSS DESCRIPTION Received in fixative is one container labeled with the patient's name and designated right forearm tissue. The specimen consists of a valdez-white skin ellipse measuring 4 x 1.5 cm and up to 0.4 cm in thickness. The specimen shows a valdez-white, ill-defined area on the surface measuring 1 x 1 cm. The specimen is inked, serially sectioned and submitted entirely in two cassettes. Cassette 1 also contains the tips of the skin ellipse. / KATJA:dusty 04/29/20 TC:5 CPT: 17927
== END ==
PROVIDERS: PCP Family Medicine; Visit Provider Surgery
DX: L57.0 Actinic keratosis (principal)
CPT/HCPCS: 88305

== ENCOUNTER 2021-03-15 06:27 | Day surgery (SDC) | payer MEDICARE, SELFPAY ==
[2021-03-15] VITALS (8 sets, daily range): BP systolic 79–156; BP diastolic 59–92; PULSE 68–80; RESP 16–18; TEMP 36.1–36.6; O2SAT 92–98; BMI 37.9
--- NOTE | 2021-03-15 06:48 | HP.PCM_ITS ---
History and Physical Date of Admission: 03/15/21 Intake Visit Reasons: CSCOPE, CONSTIPATION Chief Complaint: constipation, hx polyps Non Acoustic Operator Required: No Is patient in pain?: No Allergies No Known Allergies Allergy (Verified 03/10/21 09:37) Medications amlodipine 10 mg PO DAILY 09/14/15 [History Confirmed 03/10/21] bisoprolol-hydrochlorothiazide 1 tab PO DAILY 09/14/15 [History Confirmed 03/10/21] finasteride 5 mg PO QHS 09/14/15 [History Confirmed 03/10/21] lisinopril 40 mg PO DAILY 09/14/15 [History Confirmed 03/10/21] omeprazole 20 mg PO DAILY 09/14/15 [History Confirmed 03/10/21] simvastatin 20 mg PO QHS 09/14/15 [History Confirmed 03/10/21] tamsulosin 0.4 mg PO DAILY 09/14/15 [History Confirmed 03/10/21] venlafaxine 75 mg PO QHS 09/14/15 [History Confirmed 03/10/21] levothyroxine 75 mcg tablet 100 mcg PO DAILY tab 09/04/17 [History Confirmed 03/10/21] glimepiride 2 mg PO DAILY 01/04/18 [History Confirmed 03/10/21] linagliptin 5 mg tablet 5 mg PO DAILY tab 03/10/21 [History Confirmed 03/10/21] [facility] Medical History (Updated 03/10/21 @ 09:[address] Barak Montero MD) Constipation Essential hypertension GERD (gastroesophageal reflux disease) History of colon polyps History of hypothyroidism Obesity Skin lesion Squamous cell skin cancer Type II diabetes mellitus Surgical History History of back surgery History of penile cancer S/p bilateral carpal tunnel release S/P cholecystectomy s/p excision left forearm lesion S/P rotator cuff repair Status post right hip replacement Family History Mother Lymphoma Hypertension Father Arthritis Social History Smoking Status: Never smoker second hand exposure: No alcohol intake: never substance use type: does not use caffeine: Yes what type of physical activity do you participate in: none frequency: does not exercise seatbelt use: always HPI HPI HPI: EVAN HAMPTON, is a 80 M who presents to the office today for surgical consultation regarding colonoscopy because of bowel habit change and complaints of constipation. The patient is referred by Dr. Scooter Velasquez and a written copy of my surgical consult and recommendations will be returned to him. The patient's previous colonoscopy was in 2013. Additionally the patient has a history of stable gastroesophageal reflux disease. The patient is maintained on [id number] Prilosec 20 mg daily. His previous upper endoscopy of September 2013 demonstrated a hiatal hernia with chronic gastritis and multiple gastric polyps. At that time omeprazole was increased to 20 mg twice daily. Does not have any upper complaints today. He had a tubular adenoma on his previous colonoscopy. He is complaining of progressive rather significant constipation. He tries to drink enough fluid. He takes a daily fiber supplement. He has not noticed any bright red blood per rectum or melena. He has not had COVID-19 to which she is aware. He is not interested in vaccination. ROS General General: No weight change, appetite, fatigue, colon cancer, breast cancer or weakness HEENT HEENT: No difficulty swallowing, eye injury, eye surgery, swollen glands or hoarseness Endo Endocrine: Yes diabetes mellitus; No thyroid disease, thyroid cancer, Hair loss, heat intolerance or cold intolerance Musc Musculoskeletal: No back problems, arthritis, rheumatoid arthritis, gout or joint pain Cardio Cardiovascular: Yes high blood pressure; No murmur, pacemaker, heart disease, atrial fibrillation, heart attack, heart stent, palpitations, shortness of breat with exertion or chest pain Psych Psychiatric: Yes depression and anxiety; No hearing voices Resp Respiratory: No shortness of breath, No sleep apnea, No cough, No COPD, No asthma, No emphysema and No wheezing Gastro Gastrointestinal: No abdominal pain, No nausea or vomiting, No diarrhea, Yes constipation, No blood in stool, No acid reflux, No hemorrhoids, No ulcers, No gallbladder problem and No black,tarry stools Phong Hematologic: No blood thinners, No blood disorders, No bleeding, No anemia and No blood clots Neuro Neurologic: No weakness Exam Const General: cooperative, healthy appearing and comfortable Nutritional Appearance: obese Orientation: alert and awake [facility] Head: normal to inspection Eyes General: appearance normal, both eyes and all related structures Resp Effort & Inspection: normal respiratory effort Auscultation: clear to auscultation bilaterally Cardio Rate: regular rate Rhythm: regular rhythm GI Palpation: soft Other: Overweight, no hepatosplenomegaly, normal bowel sounds, nontender Musc Cervical Spine: normal cervical lordosis Neuro General: patient alert and patient awake Extrem General: no calf tenderness Psych Affect: normal affect COVID (Procedure Consent) Procedure Criteria Procedure Criteria: Yes Elective The surgeon/proceduralist and patient have discussed in detail the risk of exposure to and/or potential harm posed by the COVID-19 virus with having a surgery/procedure at this time versus the risk of delaying the surgery/procedure. It is not possible to know either the risk of delaying the surgery or procedure or chance of getting an infection with perfect accuracy, but a joint decision was made between the patient and the surgeon/proceduralist to proceed at this time with the scheduled surgery/procedure as indicated on the consent form. Assessment and Plan Assessment and Plan (1) Constipation: Status: Acute Qualifiers: Constipation type: unspecified constipation type Qualified Code(s): K59.00 - Constipation, unspecified Plan - Dr. Barak Montero MD: I recommended the patient a colonoscopy with possible biopsy or polypectomy as indicated because of change in bowel habits. He has previously had a tubular adenoma of the sigmoid colon. That colonoscopy was September 2013. We will utilize a slightly more aggressive bowel prep. He has had an opportunity to ask and have questions answered. I anticipate proceeding with monitored anesthesia care. We will proceed as noted. Copy: Dr. Scooter Montero M.D., F.A.C.S. I have re-examined the patient. There are no clinical changes since date of exam.
[2021-03-15 07:06] LABS: Bedside Glucose 169 mg/dL (70-110)
[2021-03-15] MEDS: Lactated Ringers 1,000 ML 100 ML IV (07:10)
--- NOTE | 2021-03-15 07:30 | COLBX_PTH ---
PATIENT: EVAN HAMPTON LOC: [facility] U#:[id number] AGE/SX: 80/M ROOM: RE03/15/[address]: Dr. Barak Montero MD : 1940 BED: DIS: 03/15/2021 SPEC #: [id number] RECD: 03/15/21 10:11 STATUS: MIRELLA REDonnie #: [id number] MIRIAN: 03/15/21 07:[address]: Barak Montero DEPT: SURGICAL PATHOLOGY RECD BY: Chantale Reardon ENTERED: 03/15/21 12:37 SP TYPE: COLON BX OTHR DR: Scooter Velasquez Tissues: A - Cecum, NOS B - Cecum, NOS C - Ascending colon D - Ascending colon E - Ascending colon F - Cecum, NOS G - Cecum, NOS H - Cecum, NOS I - Cecum, NOS J - Sigmoid colon biopsy Procedures: Surgery Specimen Level IV HEADER OPERATION: Colonoscopy (MAC) PRE-OP DIAGNOSIS: Constipation TISSUE SUBMITTED: A - Cecal polyp #1, B - Cecal polyp #2, C - Proximal ascending polyp, D - Mid ascending polyp biopsy, E - Mid ascending polyp #2, F - Cecum polyp #3, G - Cecum polyp biopsy #4, H?- Cecum polyp biopsy #5, I - Cecum polyp biopsy #6, J - Proximal sigmoid polyp biopsy MICROSCOPIC DIAGNOSIS A. Cecal polyp, biopsy: Fragments of tubular adenoma. B. Cecal polyp #2, biopsy: Cauterized fragments of hyperplastic polyp. C. Proximal ascending colon polyp, biopsy: Tubular adenoma. D. Mid ascending colon polyp, biopsy: Fragments of tubular adenoma. Mild melanosis coli. E. Mid ascending colon polyp #2, biopsy: Fragments of tubular adenoma. F. Cecal polyp #3, biopsy: Fragments of tubular adenoma. G. Cecal polyp #4, biopsy: Fragments of tubular adenoma. H. Cecal polyp #5, biopsy: Fragments of tubular adenoma. I. Cecal polyp #6, biopsy: Fragments of tubular adenoma. J. Proximal sigmoid colon polyp, biopsy: Hyperplastic polyp. AM:dusty 03/16/2021 MICROSCOPIC DESCRIPTION Slides are reviewed. GROSS DESCRIPTION A - Received in fixative is one container labeled with the patient's name and designated cecal polyp #1. The specimen consists of multiple irregular fragments of light valdez soft tissue that in aggregate measure 1 x 0.8 x 0.1 cm. The specimen is totally submitted in one cassette. B - Received in fixative is one container labeled with the patient's name and designated cecal polyp #2. The specimen consists of multiple irregular fragments of light valdez soft tissue mixed with fecal material that in aggregate measure 1 x 0.5 x 0.1 cm. The specimen is totally submitted in one cassette. C - Received in fixative is one container labeled with the patient's name and designated proximal ascending polyp. The specimen consists of multiple irregular fragments of light valdez soft tissue mixed with fecal material that in aggregate measure 1 x 1 x 0.1 cm. The specimen is totally submitted in one cassette. D - Received in fixative is one container labeled with the patient's name and designated mid ascending polyp biopsy. The specimen consists of multiple irregular fragments of light valdez soft tissue mixed with fecal material that in aggregate measure 1.5 x 0.4 x 0.1 cm. The specimen is totally submitted in one cassette. E - Received in fixative is one container labeled with the patient's name and designated mid ascending polyp #2. The specimen consists of multiple irregular fragments of light valdez soft tissue that in aggregate measure 1.5 x 0.6 x 0.2 cm. The specimen is totally submitted in one cassette. F - Received in fixative is one container labeled with the patient's name and designated cecum polyp #3. The specimen consists of multiple irregular fragments of light valdez soft tissue mixed with fecal material that in aggregate measure 2 x 0.5 x 0.1 cm. The specimen is totally submitted in one cassette. G - Received in fixative is one container labeled with the patient's name and designated cecum polyp biopsy #4. The specimen consists of multiple irregular fragments of light valdez soft tissue that in aggregate measure 1 x 0.2 x 0.1 cm. The specimen is totally submitted in one cassette. H - Received in fixative is one container labeled with the patient's name and designated cecum polyp #5 biopsy. The specimen consists of multiple irregular fragments of light valdez soft tissue that in aggregate measure 1.5 x 0.5 x 0.1 cm. The specimen is totally submitted in one cassette. I - Received in fixative is one container labeled with the patient's name and designated cecum polyp biopsy #6. The specimen consists of multiple irregular fragments of light valdez soft tissue that in aggregate measure 0.6 x 0.3 x 0.1 cm. The specimen is totally submitted in one cassette. J - Received in fixative is one container labeled with the patient's name and designated proximal sigmoid polyp biopsy. The specimen consists of one irregular fragment of light valdez soft tissue that measures 0.3 x 0.3 x 0.1 cm. The specimen is totally submitted in one cassette. / KATJA:udsty 03/15/21 TC:3 CPT: 98392 x10
--- NOTE | 2021-03-15 08:22 | OP.CCLET_ITS ---
03/15/2021 Scooter Velasquez Re : Colonoscopy procedure for Anastacio Velasquez This procedure was performed on Monday, March 15, 2021. My impressions and recommendations are as follows: Impressions : - Non-thrombosed external hemorrhoids, non-thrombosed internal hemorrhoids, internal hemorrhoids that prolapse with straining, but spontaneously regress to the resting position (Grade II) and enlarged prostate found on digital rectal exam. - One 5 mm polyp in the cecum, removed with a hot snare. Resected and retrieved. - One 10 mm polyp in the cecum, removed with a hot snare. Resected and retrieved. Clip was placed. - One 7 mm polyp in the proximal ascending colon, removed with a hot snare. Resected and retrieved. - One 5 mm polyp in the mid ascending colon, removed with a cold biopsy forceps. Resected and retrieved. - One 12 mm polyp in the mid ascending colon, removed with a cold biopsy forceps and removed with a hot snare. Resected and retrieved. - One 7 mm polyp in the cecum, removed with a hot snare. Resected and retrieved. - One 5 mm polyp in the cecum, removed with a cold biopsy forceps. Resected and retrieved. - One 8 mm polyp in the cecum, removed with a cold biopsy forceps. Resected and retrieved. - One 6 mm polyp in the cecum, removed with a cold biopsy forceps. Resected and retrieved. - One 4 mm polyp in the proximal sigmoid colon, removed with a cold biopsy forceps. Resected and retrieved. - Diverticulosis in the sigmoid colon. Recommendations : - Discharge patient to home. - Resume previous diet. - Continue present medications. - Repeat colonoscopy in 1 year for surveillance. - Telephone my office for pathology results in 1 week. My findings are described in the full procedure note, which is enclosed. If I can be of further assistance, please feel free to contact me at Doctor phone number(s): Work: . Sincerely, Barak Montero MD 03/15/2021 8:21:58 AM This report has been signed electronically.
--- NOTE | 2021-03-15 08:22 | OP.COLON_ITS ---
Patient Name: Anastacio Mcfadden Procedure Date: 03/15/2021 7:23 AM Date of : 1940 Age: 80 Procedure: Colonoscopy Indications: Constipation Providers: Barak Montero MD Medicines: See the Anesthesia note for documentation of the administered medications Patient Profile: Last Colonoscopy: 2013. Complications: No immediate complications. Procedure: Pre-Anesthesia Assessment: - Prior to the procedure, a History and Physical was performed, and patient medications and allergies were reviewed. The patient's tolerance of previous anesthesia was also reviewed. The risks and benefits of the procedure and the sedation options and risks were discussed with the patient. All questions were answered, and informed consent was obtained. Prior Anticoagulants: The patient has taken no previous anticoagulant or antiplatelet agents. ASA Grade Assessment: II - A patient with mild systemic disease. After reviewing the risks and benefits, the patient was deemed in satisfactory condition to undergo the procedure. After I obtained informed consent, the scope was passed under direct vision. Throughout the procedure, the patient's blood pressure, pulse, and oxygen saturations were monitored continuously. The colonoscope was introduced through the anus and advanced to the cecum, identified by appendiceal orifice and ileocecal valve. The colonoscopy was performed with moderate difficulty due to multiple polyps. The patient tolerated the procedure well. The quality of the bowel preparation was good. Scope In: 7:32:15 AM Scope Withdrawal Time 0 hours 34 minutes 0 seconds Scope Out: 8:09:25 AM Total Procedure Duration Time 0 hours 37 minutes 10 seconds Findings: The digital rectal exam findings include non-thrombosed external hemorrhoids, non-thrombosed internal hemorrhoids, internal hemorrhoids that prolapse with straining, but spontaneously regress to the resting position (Grade II) and enlarged prostate. A 5 mm polyp was found in the cecum. The polyp was sessile. The polyp was removed with a hot snare. Resection and retrieval were complete. A 10 mm polyp was found in the cecum. The polyp was sessile. The polyp was removed with a hot snare. Resection and retrieval were complete. To prevent bleeding post-intervention, one hemostatic clip was successfully placed. There was no bleeding at the end of the procedure. A 7 mm polyp was found in the proximal ascending colon. The polyp was sessile. The polyp was removed with a hot snare. Resection and retrieval were complete. A 5 mm polyp was found in the mid ascending colon. The polyp was sessile. The polyp was removed with a cold biopsy forceps. Resection and retrieval were complete. A 12 mm polyp was found in the mid ascending colon. The polyp was sessile. The polyp was removed with a cold biopsy forceps. The polyp was removed with a hot snare. Resection and retrieval were complete. A 7 mm polyp was found in the cecum. The polyp was sessile. The polyp was removed with a hot snare. Resection and retrieval were complete. A 5 mm polyp was found in the cecum. The polyp was sessile. The polyp was removed with a cold biopsy forceps. Resection and retrieval were complete. A 8 mm polyp was found in the cecum. The polyp was sessile. The polyp was removed with a cold biopsy forceps. Resection and retrieval were complete. A 6 mm polyp was found in the cecum. The polyp was sessile. The polyp was removed with a cold biopsy forceps. Resection and retrieval were complete. A 4 mm polyp was found in the proximal sigmoid colon. The polyp was sessile. The polyp was removed with a cold biopsy forceps. Resection and retrieval were complete. Scattered diverticula were found in the sigmoid colon. Impression: - Non-thrombosed external hemorrhoids, non-thrombosed internal hemorrhoids, internal hemorrhoids that prolapse with straining, but spontaneously regress to the resting position (Grade II) and enlarged prostate found on digital rectal exam. - One 5 mm polyp in the cecum, removed with a hot snare. Resected and retrieved. - One 10 mm polyp in the cecum, removed with a hot snare. Resected and retrieved. Clip was placed. - One 7 mm polyp in the proximal ascending colon, removed with a hot snare. Resected and retrieved. - One 5 mm polyp in the mid ascending colon, removed with a cold biopsy forceps. Resected and retrieved. - One 12 mm polyp in the mid ascending colon, removed with a cold biopsy forceps and removed with a hot snare. Resected and retrieved. - One 7 mm polyp in the cecum, removed with a hot snare. Resected and retrieved. - One 5 mm polyp in the cecum, removed with a cold biopsy forceps. Resected and retrieved. - One 8 mm polyp in the cecum, removed with a cold biopsy forceps. Resected and retrieved. - One 6 mm polyp in the cecum, removed with a cold biopsy forceps. Resected and retrieved. - One 4 mm polyp in the proximal sigmoid colon, removed with a cold biopsy forceps. Resected and retrieved. - Diverticulosis in the sigmoid colon. Recommendation: - Discharge patient to home. - Resume previous diet. - Continue present medications. - Repeat colonoscopy in 1 year for surveillance. - Telephone my office for pathology results in 1 week. Procedure Code(s): --- Professional --- 37178, Colonoscopy, flexible; with removal of tumor(s), polyp(s), or other lesion(s) by snare technique 81226, 59, Colonoscopy, flexible; with biopsy, single or multiple Diagnosis Code(s): --- Professional --- D12.2, Benign neoplasm of ascending colon D12.0, Benign neoplasm of cecum D12.5, Benign neoplasm of sigmoid colon K64.1, Second degree hemorrhoids K64.4, Residual hemorrhoidal skin tags K59.00, Constipation, unspecified N40.0, Benign prostatic hyperplasia without lower urinary tract symptoms K57.30, Diverticulosis of large intestine without perforation or abscess without bleeding CPT copyright 2017 [employer]. All rights reserved. The codes documented in this report are preliminary and upon senior analyst developer review may be revised to meet current compliance requirements. Barak Montero MD 03/15/2021 8:21:58 AM This report has been signed electronically. Number of Addenda: 0 Note Initiated On: 03/15/2021 7:23 AM
== END 2021-03-15 09:19 ==
LOC: EN 06:28 → AC 06:30
PROVIDERS: Visit Provider Surgery
PROC: 0DJD8ZZ Inspection of Lower Intestinal Tract, Via Natural or Artificial Opening Endoscopic (ICD-10-PCS; CPT 45378; principal; 2021-03-15 07:25)
DX: K59.00 Constipation, unspecified (principal); D12.2 Benign neoplasm of ascending colon; D12.0 Benign neoplasm of cecum; D12.5 Benign neoplasm of sigmoid colon; K64.1 Second degree hemorrhoids; K64.4 Residual hemorrhoidal skin tags; K57.30 Diverticulosis of large intestine without perforation or abscess without bleeding; I10 Essential (primary) hypertension; K21.9 Gastro-esophageal reflux disease without esophagitis; E03.9 Hypothyroidism, unspecified; E11.9 Type 2 diabetes mellitus without complications; Z86.010 Personal history of colon polyps; E66.9 Obesity, unspecified
CPT/HCPCS: 45380; 45385; 82962; 87426; 88305; J7120

== ENCOUNTER → 2021-05-09 10:35 | Outpatient (CLI) | payer MEDICARE, SELFPAY | PROVIDERS: Visit Provider Physician Assistant Surgical | DX: U07.1 COVID-19 (principal) | CPT/HCPCS: 87635; U0005; U0003 ==

== ENCOUNTER 2021-05-10 16:43 | Outpatient (CLI) | payer MEDICARE, SELFPAY ==
[2021-05-10 17:15] VITALS: BP 157/81; PULSE 81; RESP 18; TEMP 37.3; O2SAT 95; BMI 36.0
[2021-05-10] MEDS: 0.9% Saline Lock 10 ML Syringe IV (17:20)
[2021-05-10 18:08] VITALS: BP 148/77; PULSE 78; RESP 16; TEMP 36.8; O2SAT 95
[2021-05-10 19:04] VITALS: BP 138/80; PULSE 75; RESP 16; TEMP 37.2; O2SAT 93
== END 2021-05-10 19:12 | disposition home or self-care (01) ==
LOC: MS3OUT 16:44 → MS3 16:44
PROVIDERS: Referring Provider Nurse Practitioner Adult Health; Visit Provider Nurse Practitioner Adult Health
DX: Z23 Encounter for immunization (principal); U07.1 COVID-19
CPT/HCPCS: J7050; M0245; Q0245; A4216

== ENCOUNTER 2022-04-07 08:20 | Day surgery (SDC) | payer MEDICARE, SELFPAY ==
[2022-04-07] VITALS (7 sets, daily range): BP systolic 96–151; BP diastolic 52–86; PULSE 60–71; RESP 16; TEMP 36.2–36.8; O2SAT 92–96; BMI 36.6
--- NOTE | 2022-04-07 | COLBX_PTH ---
PATIENT: EVAN HAMPTON LOC: EN U#:[id number] AGE/SX: 81/M ROOM: RE04/07/[address]: Dr. Barak Montero MD : 1940 BED: DIS: 04/07/2022 SPEC #: [id number] RECD: 04/07/22 13:40 STATUS: MIRELLA REDonnie #: [id number] MIRIAN: 04/07/22 00:[address]: Barak Montero DEPT: SURGICAL PATHOLOGY RECD BY: Rusty Melvin ENTERED: 04/07/22 13:41 SP TYPE: COLON BX OTHR DR: Scooter Velasquez Tissues: A - Descending colon B - Descending colon C - Descending colon D - Transverse colon E - Transverse colon F - Transverse colon G - Transverse colon Procedures: Surgery Specimen Level IV HEADER OPERATION: Colonoscopy (MAC), biopsy, polypectomy PRE-OP DIAGNOSIS: History of colon polyps TISSUE SUBMITTED: A ? Proximal descending polyp, B - Proximal descending polyp biopsy, C - Proximal descending polyp, D ? Proximal transverse polyp biopsy, E - Proximal transverse polyp biopsy, F - Proximal transverse polyp biopsy, G ? Mid transverse polyp MICROSCOPIC DIAGNOSIS A. Proximal descending colon polyp, polypectomy: Fragments of tubular adenoma. B. Proximal descending colon polyp, biopsy: Fragments of tubular adenoma. C. Proximal descending colon polyp, polypectomy: Fragments of tubular adenoma. D. Proximal transverse colon polyp, biopsy: Tubular adenoma. E. Proximal transverse colon polyp, biopsy: Fragments of tubular adenoma. F. Proximal transverse colon polyp, biopsy: Fragments of tubular adenoma. G. Mid transverse colon polyp, polypectomy: Fragments of tubular adenoma. SJ:dusty 04/10/2022 MICROSCOPIC DESCRIPTION Slides are reviewed. GROSS DESCRIPTION A - Received in fixative is one container labeled with the patient's name and designated proximal descending polyp. The specimen consists of multiple irregular fragments of light valdez soft tissue that in aggregate measure 1 x 0.2 x 0.1 cm. The specimen is totally submitted in one cassette. B - Received in fixative is one container labeled with the patient's name and designated proximal descending polyp. The specimen consists of two irregular fragments of light valdez soft tissue that in aggregate measure 0.5 x 0.3 x 0.1 cm. The specimen is totally submitted in one cassette. C - Received in fixative is one container labeled with the patient's name and designated proximal descending polyp. The specimen consists of multiple irregular fragments of light valdez soft tissue that in aggregate measure 1 x 0.5 x 0.1 cm. The specimen is totally submitted in one cassette. D - Received in fixative is one container labeled with the patient's name and designated proximal transverse polyp. The specimen consists of one irregular fragment of light valdez soft tissue that measures 0.5 x 0.3 x 0.1 cm. The specimen is totally submitted in one cassette. E - Received in fixative is one container labeled with the patient's name and designated proximal transverse polyp. The specimen consists of multiple irregular fragments of light valdez soft tissue that in aggregate measure 0.5 x 0.2 x 0.1 cm. The specimen is totally submitted in one cassette. F - Received in fixative is one container labeled with the patient's name and designated proximal transverse polyp biopsy. The specimen consists of two irregular fragments of light valdez soft tissue that in aggregate measure 0.6 x 0.5 x 0.1 cm. The specimen is totally submitted in one cassette. G - Received in fixative is one container labeled with the patient's name and designated mid transverse polyp. The specimen consists of multiple irregular fragments of light valdez soft tissue that in aggregate measure 1 x 0.5 x 0.1 cm. The specimen is totally submitted in one cassette. / AM:dusty 04/07/2022 TC:1 CPT: 86522 x7
--- NOTE | 2022-04-07 08:28 | HP.PCM_ITS ---
History and Physical Date of Admission: 04/07/22 Visit Reasons:?CSCOPE Chief Complaint: C-scope/ multiple polyps Paginator Required: No Accompanied by: Is patient in pain?: No Allergies No Known Allergies Allergy (Verified 03/02/22 12:47) Medications amlodipine 10 mg tablet 10 mg PO DAILY BP 09/14/15 [History Confirmed 03/02/22] bisoprolol 10 mg-hydrochlorothiazide 6.25 mg tablet 1 tab PO DAILY BP 09/14/15 [History Confirmed 03/02/22] finasteride 5 mg tablet 5 mg PO QHS PROSTATE 09/14/15 [History Confirmed 03/02/22] lisinopril 40 mg tablet 40 mg PO DAILY BP 09/14/15 [History Confirmed 03/02/22] omeprazole 20 mg capsule,delayed release 20 mg PO DAILY ACID 09/14/15 [History Confirmed 03/02/22] simvastatin 20 mg tablet 20 mg PO QHS CHOLESTEROL 09/14/15 [History Confirmed 03/02/22] tamsulosin 0.4 mg capsule 0.4 mg PO QHS URINE FLOW 09/14/15 [History Confirmed 03/02/22] venlafaxine 75 mg tablet 75 mg PO QHS DEPRESSION 09/14/15 [History Confirmed 03/02/22] levothyroxine 75 mcg tablet 100 mcg PO DAILY THYROID 09/04/17 [History Confirmed 03/02/22] glimepiride 2 mg tablet 2 mg PO DAILY DIABETES 01/04/18 [History Confirmed 03/02/22] linagliptin 5 mg tablet 5 mg PO DAILY 03/10/21 [History Confirmed 03/02/22] potassium chloride 10 mEq tablet,extended release 10 meq PO DAILY 03/14/21 [History Confirmed 03/02/22] [facility] Medical History? Constipation Depression Diabetes Dietary restriction Essential hypertension Gastric reflux GERD (gastroesophageal reflux disease) High cholesterol History of colon polyps History of edema History of hypothyroidism History of ulceration Hypertension Non-smoker Obesity Prostate disease Skin lesion Squamous cell skin cancer Thyroid disease Type II diabetes mellitus Wears dentures Wears glasses Surgical History? History of back surgery History of penile cancer S/p bilateral carpal tunnel release S/P cholecystectomy s/p excision left forearm lesion S/P rotator cuff repair Status post right hip replacement Family History? Mother Lymphoma HypertensionFather Arthritis Social History? Smoking Status:? Never smoker second hand exposure:? No alcohol intake:? never substance use type:? does not use caffeine:? Yes what type of physical activity do you participate in:? none frequency:? does not exercise seatbelt use:? always HPI HPI HPI: EVAN HAMPTON, is a 81 M who presents to the office today for surgical consultation regarding a follow-up colonoscopy.? A previous colonoscopy that I performed for him on March 15, 2021 was notable for 10 polyps.? Fortunately the majority were tubular adenomas with 2 of them being hyperplastic.? There was no dysplasia or malignancy.? He returns now for planned shorter-term follow-up due to the number of polyps identified. Fortunately over the past year he has had a stable level of health.? No bright red blood per rectum or melena.? No abdominal pain.? He does now need quite a sedentary life.? He has not had any hospitalizations however ROS General General: Yes fatigue; No weight change, appetite, colon cancer, breast cancer or weakness HEENT HEENT: No difficulty swallowing, eye injury, eye surgery, swollen glands or hoarseness Endo Endocrine: Yes diabetes mellitus; No thyroid disease, thyroid cancer, Hair loss, heat intolerance or cold intolerance Skin Skin: No rash or changing moles Breast Breast: No left breast lump, right breast lump, nipple discharge, breast pain, abnormal mammogram, abnormal US or breast enlargement Musc Musculoskeletal: No back problems, arthritis, rheumatoid arthritis, gout or joint pain Cardio Cardiovascular: Yes high blood pressure; No murmur, pacemaker, heart disease, atrial fibrillation, heart attack, heart stent, palpitations, shortness of breat with exertion or chest pain Psych Psychiatric: No depression, anxiety or hearing voices Resp Respiratory: No shortness of breath, No sleep apnea, No cough, No COPD, No asthma, No emphysema and No wheezing Gastro Gastrointestinal: No abdominal pain, No nausea or vomiting, No diarrhea, Yes constipation (occasional), No blood in stool, Yes acid reflux, No hemorrhoids, No ulcers, No gallbladder problem and No black,tarry stools Phong Hematologic: No blood thinners, No blood disorders, No bleeding, No anemia and No blood clots Neuro Neurologic: No system reviewed and no additional complaints, except as documented, No as per HPI, No abnormal gait, No abnormal hearing, No abnormal movements, No abnormal speech, No behavioral changes, No burning sensations, No confusion, No convulsions, No disequilibrium, No dizziness, No localized weakness, No frequent falls, No headache(s), No lack of coordination, No loss of vision, No memory loss, No numbness, No other visual disturbances, No radicular pain, No restless legs, No sensory deficit, No syncope, No tingling, No tremor(s), No weakness and No other Exam Const General: cooperative, healthy appearing and comfortable Nutritional Appearance: obese HENMT Head: normal to inspection Eyes General: appearance normal, both eyes and all related structures Neck Neck: normal visual inspection Chest Chest palpation & inspection: normal inspection of the chest Resp Effort & Inspection: normal respiratory effort Auscultation: clear to auscultation bilaterally Cardio Rate: regular rate Rhythm: regular rhythm GI Palpation: soft and no hepatosplenomegaly Other: Overweight, I am not able to detect any internal organs Skin General: no rashes or lesions noted Neuro General: patient alert Other: Patient is demonstrating some memory deficit.? He does rely upon his to fill in specifics Extrem Other: Mild 1-2+ bilateral lower extremity swelling. Psych Appearance: grossly normal Assessment and Plan Assessment and Plan (1) History of colon polyps: ?Status:?Acute ?Plan: I recommended the patient a colonoscopy with possible biopsy or polypectomy as indicated.? He is aware of the technique, benefit, risk, alternatives.? He has had an opportunity to ask and have questions answered.? We will schedule and proceed at his discretion.? We will give Dulcolax tablets on day 1 and then do MiraLAX bowel prep on day 2.? Because of the patient's age we will use monitored anesthesia care.? He and his have had an opportunity to ask and have questions answered.? We will schedule procedure at his discretion.? I appreciate the ongoing opportunity of assisting with his surgical care. Primary care physician is Dr. Scooter Montero M.D., F.A.C.S. I have re-examined the patient. There are no clinical changes since date of exam. Barak Montero M.D., F.A.C.S.
[2022-04-07] MEDS: Lactated Ringers 1,000 ML 15 ML IV (09:04)
[2022-04-07 10:26] LABS: Bedside Glucose 175 mg/dL (74-106)
--- NOTE | 2022-04-07 10:46 | OP.COLON_ITS ---
Patient Name: Anastacio Mcfadden Procedure Date: 04/07/2022 9:58 AM Date of : 1940 Age: 81 Procedure: Colonoscopy Indications: High risk colon cancer surveillance: Personal history of colonic polyps Providers: Barak Montero MD Referring MD: Barak Montero MD Medicines: See the Anesthesia note for documentation of the administered medications Patient Profile: Last Colonoscopy: 1 year ago. Complications: No immediate complications. Procedure: Pre-Anesthesia Assessment: - Prior to the procedure, a History and Physical was performed, and patient medications and allergies were reviewed. The patient's tolerance of previous anesthesia was also reviewed. The risks and benefits of the procedure and the sedation options and risks were discussed with the patient. All questions were answered, and informed consent was obtained. Prior Anticoagulants: The patient has taken no previous anticoagulant or antiplatelet agents. ASA Grade Assessment: II - A patient with mild systemic disease. After reviewing the risks and benefits, the patient was deemed in satisfactory condition to undergo the procedure. After I obtained informed consent, the scope was passed under direct vision. Throughout the procedure, the patient's blood pressure, pulse, and oxygen saturations were monitored continuously. The colonoscope was introduced through the anus and advanced to the cecum, identified by appendiceal orifice and ileocecal valve. The colonoscopy was somewhat difficult due to multiple polyps. The patient tolerated the procedure well. The quality of the bowel preparation was good. The ileocecal valve was photographed. Scope In: 10:07:48 AM Scope Withdrawal Time 0 hours 25 minutes 20 seconds Scope Out: 10:35:56 AM Total Procedure Duration Time 0 hours 28 minutes 8 seconds Findings: Hemorrhoids were found on perianal exam. A 6 mm polyp was found in the proximal ascending colon. The polyp was sessile. The polyp was removed with a cold snare. Resection and retrieval were complete. To prevent bleeding post-intervention, one hemostatic clip was successfully placed. There was no bleeding at the end of the procedure. A 4 mm polyp was found in the proximal ascending colon. The polyp was sessile. The polyp was removed with a cold biopsy forceps. Resection and retrieval were complete. A 7 mm polyp was found in the proximal ascending colon. The polyp was sessile. The polyp was removed with a hot snare. Resection and retrieval were complete. A 4 mm polyp was found in the proximal transverse colon. The polyp was sessile. The polyp was removed with a cold biopsy forceps. Resection and retrieval were complete. A 4 mm polyp was found in the proximal transverse colon. The polyp was sessile. The polyp was removed with a cold biopsy forceps. Resection and retrieval were complete. A 3 mm polyp was found in the proximal transverse colon. The polyp was sessile. The polyp was removed with a cold biopsy forceps. Resection and retrieval were complete. A 7 mm polyp was found in the mid transverse colon. The polyp was sessile. The polyp was removed with a hot snare. Resection and retrieval were complete. Scattered diverticula were found in the sigmoid colon. Impression: - Hemorrhoids found on perianal exam. - One 6 mm polyp in the proximal ascending colon, removed with a cold snare. Resected and retrieved. Clip was placed. - One 4 mm polyp in the proximal ascending colon, removed with a cold biopsy forceps. Resected and retrieved. - One 7 mm polyp in the proximal ascending colon, removed with a hot snare. Resected and retrieved. - One 4 mm polyp in the proximal transverse colon, removed with a cold biopsy forceps. Resected and retrieved. - One 4 mm polyp in the proximal transverse colon, removed with a cold biopsy forceps. Resected and retrieved. - One 3 mm polyp in the proximal transverse colon, removed with a cold biopsy forceps. Resected and retrieved. - One 7 mm polyp in the mid transverse colon, removed with a hot snare. Resected and retrieved. - Diverticulosis in the sigmoid colon. Recommendation: - Discharge patient to home. - Resume previous diet. - Continue present medications. - Repeat colonoscopy in 1 year for surveillance based on pathology results. - Telephone my office for pathology results in 1 week. Procedure Code(s): --- Professional --- 70204, Colonoscopy, flexible; with removal of tumor(s), polyp(s), or other lesion(s) by snare technique 68005, 59, Colonoscopy, flexible; with biopsy, single or multiple Diagnosis Code(s): --- Professional --- Z86.010, Personal history of colonic polyps K64.9, Unspecified hemorrhoids D12.2, Benign neoplasm of ascending colon D12.3, Benign neoplasm of transverse colon (hepatic flexure or splenic flexure) K57.30, Diverticulosis of large intestine without perforation or abscess without bleeding CPT copyright 2017 [employer]. All rights reserved. The codes documented in this report are preliminary and upon medical insurance coder review may be revised to meet current compliance requirements. Barak Montero MD 04/07/2022 10:46:07 AM This report has been signed electronically. Number of Addenda: 0 Note Initiated On: 04/07/2022 9:58 AM
--- NOTE | 2022-04-07 10:46 | OP.CCLET_ITS ---
04/07/2022 Scooter Velasquez Re : Colonoscopy procedure for Anastacio Velasquez This procedure was performed on Thursday, April 07, 2022. My impressions and recommendations are as follows: Impressions : - Hemorrhoids found on perianal exam. - One 6 mm polyp in the proximal ascending colon, removed with a cold snare. Resected and retrieved. Clip was placed. - One 4 mm polyp in the proximal ascending colon, removed with a cold biopsy forceps. Resected and retrieved. - One 7 mm polyp in the proximal ascending colon, removed with a hot snare. Resected and retrieved. - One 4 mm polyp in the proximal transverse colon, removed with a cold biopsy forceps. Resected and retrieved. - One 4 mm polyp in the proximal transverse colon, removed with a cold biopsy forceps. Resected and retrieved. - One 3 mm polyp in the proximal transverse colon, removed with a cold biopsy forceps. Resected and retrieved. - One 7 mm polyp in the mid transverse colon, removed with a hot snare. Resected and retrieved. - Diverticulosis in the sigmoid colon. Recommendations : - Discharge patient to home. - Resume previous diet. - Continue present medications. - Repeat colonoscopy in 1 year for surveillance based on pathology results. - Telephone my office for pathology results in 1 week. My findings are described in the full procedure note, which is enclosed. If I can be of further assistance, please feel free to contact me at Doctor phone number(s): Work: . Sincerely, Barak Montero MD 04/07/2022 10:46:07 AM This report has been signed electronically.
== END 2022-04-07 11:41 | disposition home or self-care (01) ==
LOC: EN 08:24 → AC 08:24
PROVIDERS: Visit Provider Surgery
PROC: 0DJD8ZZ Inspection of Lower Intestinal Tract, Via Natural or Artificial Opening Endoscopic (ICD-10-PCS; CPT 45378; principal; 2022-04-07 09:40)
DX: Z12.11 Encounter for screening for malignant neoplasm of colon (principal); E11.9 Type 2 diabetes mellitus without complications; K64.9 Unspecified hemorrhoids; Z86.010 Personal history of colon polyps; K57.30 Diverticulosis of large intestine without perforation or abscess without bleeding; D12.2 Benign neoplasm of ascending colon; D12.3 Benign neoplasm of transverse colon; E03.9 Hypothyroidism, unspecified; I10 Essential (primary) hypertension
CPT/HCPCS: 45385; 45380; 82962; 88305; J7120; J2405

== ENCOUNTER → 2022-09-06 | Outpatient (CLI) | payer MEDICARE, SELFPAY ==
--- NOTE | 2022-09-06 13:27 | CT_ITS ---
STUDY: CTA NECK WITH CONTRAST REASON FOR EXAM: Male, 81 years old. Carotid enlargement -- ? thoracic or R carotid aneurysm,adenopathy RADIATION DOSAGE (If Supplied By Facility): CTDIvol = ( 24.51 ) mGy, DLP = ( 1670.05 ) mGycm TECHNIQUE: CT angiography with multi-detector data acquisition was performed from the aortic arch to the skull base following intravenous administration of IV 100mL Isovue-370. MIP images were reconstructed from the axial data set. Post-processing of the angiographic images was performed, with multiplanar reformation and 3D reconstruction. Individualized dose optimization techniques were used for this CT. COMPARISON: None. FINDINGS: AORTIC ARCH: There is atherosclerotic calcific plaque formation of the aortic arch and great vessels arising from the aortic arch, without a hemodynamically significant stenosis. There is a normal origin of the brachiocephalic, left common carotid, and left subclavian arteries. RIGHT CAROTID ARTERIES: Normal right common carotid artery (CCA). Normal right common carotid bulb. There is mild atherosclerotic plaque formation of the origin of the right internal carotid artery with less than 50% cross sectional diameter stenosis. Normal visualized cervical portion of the right internal carotid artery. Normal origin of the right external carotid artery (ECA). LEFT CAROTID ARTERIES: Normal left common carotid artery (CCA). Normal left common carotid bulb. There is extensive atherosclerotic plaque formation of the origin of the left internal carotid artery with an estimated stenosis of greater than 70%. Normal visualized cervical portion of the left internal carotid artery. Normal origin of the left external carotid artery (ECA). VERTEBRAL ARTERIES: There is enhancement within the bilateral vertebral arteries with a small right vertebral artery, and a dominant left vertebral artery. Small benign-appearing bilateral cervical lymph nodes. CT/CTA Neck W/WO Contrast IMPRESSION: Calcific plaques at the origin of the right internal carotid artery causing less than 50% narrowing. Calcific plaques at the level of the left internal carotid artery causing greater than 70% stenosis. Electronically Signed: Armand Patrick MD at 17:06 EST ,
--- NOTE | 2022-09-06 13:27 | CT_ITS ---
STUDY: CTA CHEST REASON FOR EXAM: Male, 81 years old. Carotid artery enlargement -- ? Thoracic or R carotid aneurysm, adenopathy RADIATION DOSAGE (If Supplied By Facility): CTDIvol = ( 24.51 ) mGy, DLP = ( 1767.05 ) mGycm TECHNIQUE: The examination was performed with the intravenous administration of IV 100mL Isovue-370. Post-processing of the angiographic images was performed, with multiplanar reformation and 3D reconstruction. Individualized dose optimization techniques were used for this CT. COMPARISON: None. FINDINGS: Normal enhancement of the main pulmonary artery and right and left pulmonary arteries. Normal enhancement of the bilateral peripheral pulmonary arteries. There is no demonstrated pulmonary embolism. Normal thoracic aorta and visualized great vessels. There is no demonstrated aortic dissection. There are calcifications of the coronary arteries. There are visualized mediastinal lymph nodes, which are within normal size limits, and with normal morphology. Normal hilar regions. Normal visualized trachea and bronchi. The lungs are well expanded. Mild linear scarring in the lingular segment of the left upper lobe. Normal pleura. Normal chest wall structures. There are degenerative changes of thoracic spine. There are multiple left renal cysts. Small hiatal hernia. CT/CTA Chest W/WO Contrast IMPRESSION: No acute abnormality is seen. Electronically Signed: Armand Patrick MD at 17:08 [facility] ,
[2022-09-06 13:56] LABS: CREATININE FINGERSTICK 1.2 mg/dL (0.70-1.30)
== END | disposition home or self-care (01) ==
LOC: CT 13:26
PROVIDERS: Referring Provider Surgery; Visit Provider Surgery
DX: I77.9 Disorder of arteries and arterioles, unspecified (principal)
CPT/HCPCS: 70498; 71275; Q9967

== ENCOUNTER → 2022-09-15 | Outpatient (CLI) | payer MEDICARE, SELFPAY ==
--- NOTE | 2022-09-15 08:23 | CDU_ITS ---
Reason For Study: Stenosis Rt. Velocities/BP Lt. Velocities/BP Prox CCA 42.8/11.6 cm/sec. Prox CCA 83.3/15.7 cm/sec. Mid CCA 74.1/7.5 cm/sec. Mid CCA 78.7/14.9 cm/sec. Mid CCA 172.2/18.8 cm/sec. Tortuosity Dist CCA 62.2/17.1 cm/sec. may overestimate velocity. Dist ICA 52.9/10.1 cm/sec. Dist CCA 66.6/17.1 cm/sec. Mid ICA 89.7/27.0 cm/sec. Prox ICA 79.8/16.0 cm/sec. Prox ICA 84.2/31.4 cm/sec. Mid ICA 80.9/17.1 cm/sec. Lt. ICA/CCA = 1.1. Dist ICA 57.8/19.3 cm/sec. Prox ECA 89.7/9.5 cm/sec. Rt. ICA/CCA = 1.09. Lt. Vert. 28.9/9.7 cm/sec. Prox ECA 80.9/9.5 cm/sec. Rt. Vert. 23.9/4.6 cm/sec. Right Extracranial The right common carotid artery is tortuous. Rt Innominate A Distal measures approximately 1.75cm x 1.63 in transverse view. Rt CCA Prox measures approximately 0.76cm in longitudinal view. Rt Sub A Prox measures approximately 0.67cm in longitudinal view. There is heterogeneous, irregular atherosclerotic plaque noted in the right internal carotid artery. There is intimal thickening but no significant atherosclerotic plaque noted in the right external carotid artery. Antegrade flow is noted in the right vertebral artery. Left Extracranial There is intimal thickening but no significant atherosclerotic plaque noted in the left common carotid artery. The left common carotid artery is tortuous. There is heterogeneous, irregular atherosclerotic plaque noted in the left internal carotid artery. There is heterogeneous, irregular atherosclerotic plaque noted in the left external carotid artery. Antegrade flow is noted in the left vertebral artery. Procedure Carotid Duplex 63926. This is a Carotid Duplex examination using B-mode, color flow and specral Doppler. The exam was diagnostic. Exam performed in department. VL/Carotid Duplex Ultrasound Interpretation Summary Very tortuous right common carotid artery with the distal right innominate rita ry measuring 1.75 x 1.63 cm in diameter. The right common carotid artery measures 0.76 cm in diameter which is normal Less than 50% stenosis of the right internal carotid artery with mild calcific plaque. Less than 50% stenosis right external carotid artery Mild tortuosity of the left common carotid artery. Irregular plaque at the proximal left internal carotid artery with less than 50 % stenosis Less than 50% stenosis left external carotid artery Patent antegrade vertebral arteries bilaterally Ordering Physician: Barak Montero Referring Physician: Scooter Velasquez Performed By: Yinka Starkey RVT
== END | disposition home or self-care (01) ==
PROVIDERS: Visit Provider Surgery
DX: I65.23 Occlusion and stenosis of bilateral carotid arteries (principal)
CPT/HCPCS: 93880

== ENCOUNTER → 2023-04-09 | Outpatient (CLI) | payer MEDICARE, SELFPAY ==
[2023-04-09 10:12] LABS: Absolute Lymphocyte Count 2.17 X10^3/uL (0.83-4.51); Absolute Neutrophil Count 5.9 X10^3/uL (2.0-7.7); Basophil# 0.05 X10^3/uL; Basophil% 0.5 % (0-1); Eosinophil# 0.41 X10^3/uL; Eosinophils% 4.4 % (0-5); Hematocrit 43.2 % (40-54); Hemoglobin 14.1 g/dL (13.0-16.5); Lymphocyte # 2.17 X10^3/ul (0.83-4.51); Lymphocyte % 23.4 % (19-41); Mean Corp Hgb Conc 32.6 g/dL (32-36); Mean Corpuscular Hgb 30.1 pg (27.0-32.0); Mean Corpuscular Volume 92.3 fL (80-94); Mean Platelet Vol. 9.7 fl (6.2-12.0); Monocyte# 0.67 X10^3/uL; Monocyte% 7.2 % (0-10); NRBC Flagged by Analyzer 0 % (0-5); Neutrophil # 5.94 X10^3/uL (2.7-7.7); Neutrophil % 64.2 % (47-70); Platelet Count 235 K/mm3 (150-450); RBC Distribution Width CV 13.5 % (11.6-14.6); Red Blood Count 4.68 M/mm3 (4.6-6.2); White Blood Count 9.3 K/mm3 (4.4-11.0)
[2023-04-09 11:20] LABS: ALB/GLOB Ratio 0.8 RATIO (0.9-2.4); AST(SGOT) 13 U/L (15-37); Alanine Aminotransfer ALT/SGPT 19 U/L (16-61); Albumin, Serum 3.6 g/dL (3.2-5.0); Alkaline Phosphatase 77 U/L (45-117); Anion Gap 7 (5-15); BUN 32 mg/dL (7-18); BUN/Creat Ratio 18.3 RATIO (10-20); Chloride 104 mmol/L (98-107); Cholesterol 116 mg/dL (200); Creatinine, Serum 1.75 mg/dL (0.70-1.30); EST Glomerular Filtration Rate 40 mL/min (>60); Est Glom Filt Rate - Afr Amer 48 mL/min (>60); Globulin 4.3 g/dL (2.2-4.2); Glucose 169 mg/dL (74-106); High Density Lipoprotein 32 mg/dL; Potassium 3.8 mmol/L (3.5-5.1); Protein, Total 7.9 g/dL (6.4-8.2); Sodium Level 141 mmol/L (136-145); T4 Free Direct 1.06 ng/dL (0.76-1.46); Thyroid Stim Hormone (TSH) 0.91 uIU/mL (0.358-3.74); Triglycerides 137 mg/dL; Very Low Density Lipoprotein 27 mg/dL (5-40)
[2023-04-09 11:42] LABS: Hemoglobin A1c 7.4 % (3.8-5.6)
--- NOTE | 2023-04-09 18:28 | STRESSREP ---
Stress Test Report Pharmacologic myocardial perfusion stress test. 82-year-old man with a history of chest pain Resting EKG demonstrates sinus rhythm with a rate of 72 bpm. Resting blood pressure is 152/98 mmHg. 0.4 mg of regadenoson was infused per usual protocol followed by rapid intravenous saline flush injection. Continuous EKG monitoring was performed. The maximum heart rate was 85 bpm which was 60% of max impacted heart rate the maximum workload was 1 metabolic equivalent. At rest there were no ST or T wave changes noted to suggest ischemia and at peak infusion nonspecific ST changes were noted which did not meet the criteria for ischemia. No clinical angina is noted. The final blood pressure was 132/76 mmHg. Myocardial perfusion protocol. 11.9 mCi of technetium 99m sestamibi was injected at rest. 0.4 mg of regadenoson was infused per usual protocol. At peak infusion 33.3 mCi of technetium 99m sestamibi was injected stress images were obtained stress and rest images were reconstructed and compared in the short axis vertical long and horizontal long axis. Gated images were also obtained. Perfusion SPECT analysis: Review of the stress images demonstrate normal uptake of tracer noted in all areas of the myocardium. The resting images similar demonstrated normal uptake of tracer noted in all areas of the myocardium. No areas of reversibility are noted to suggest ischemia and no previous infarct is noted. Gated SPECT analysis: The gated ejection fraction is 61%. Conclusion: Normal pharmacologic myocardial perfusion stress test. Preserved ejection fraction.
== END | disposition home or self-care (01) ==
PROVIDERS: PCP Family Medicine; Referring Provider Registered Nurse; Visit Provider Registered Nurse
DX: R07.89 Other chest pain (principal); E11.65 Type 2 diabetes mellitus with hyperglycemia
CPT/HCPCS: 36415; 78452; 80053; 80061; 83036; 84439; 84443; 85025; 93017; A9500; A4216; J2785

== ENCOUNTER 2023-05-29 05:58 | Day surgery (SDC) | payer MEDICARE, SELFPAY ==
--- NOTE | 2023-05-29 | COLBX_PTH ---
PATIENT: EVAN HAMPTON LOC: EN U#:[id number] AGE/SX: 82/M ROOM: RE05/29/[address]: Dr. Barak Montero MD : 1940 BED: DIS: 05/29/2023 SPEC #: [id number] RECD: 05/29/23 10:14 STATUS: MIRELLA REDonnie #: [id number] MIRIAN: 05/29/23 00:[address]: Barak Montero DEPT: SURGICAL PATHOLOGY RECD BY: Rusty Melvin ENTERED: 05/29/23 10:15 SP TYPE: COLON BX OTHR DR: Dr. Scooter Velasquez MD Tissues: A - Ascending colon B - Transverse colon C - Transverse colon Procedures: Surgery Specimen Level IV HEADER OPERATION: Colonoscopy, biopsy, polypectomy, hemostasis clip PRE-OP DIAGNOSIS: History of colon polyps TISSUE SUBMITTED: A - Proximal ascending polyps biopsy x4, B - Proximal transverse polyp biopsy, C - Proximal transverse polyp #2 MICROSCOPIC DIAGNOSIS A. Ascending colon polyps, biopsy: Fragments of tubular adenoma. B. Proximal transverse colon polyp, biopsy: Fragments of tubular adenoma. C. Proximal transverse colon polyp #2, biopsy: Tubular adenoma. AM:dusty 05/30/2023 MICROSCOPIC DESCRIPTION Slides are reviewed. GROSS DESCRIPTION A - Received in fixative is one container labeled with the patient's name and designated proximal ascending polyps. The specimen consists of multiple irregular fragments of light valdez soft tissue that in aggregate measure 1.5 x 0.5 x 0.1 cm. The specimen is totally submitted in one cassette. B - Received in fixative is one container labeled with the patient's name and designated proximal transverse polyp. The specimen consists of two irregular fragments of light valdez soft tissue that in aggregate measure 0.6 x 0.2 x 0.1 cm. The specimen is totally submitted in one cassette. C - Received in fixative is one container labeled with the patient's name and designated proximal transverse polyp #2. The specimen consists of multiple irregular fragments of light valdez soft tissue that in aggregate measure 1.0 x 0.3 x 0.1 cm. The specimen is totally submitted in one cassette. / AM:dusty 05/29/2023 TC:5 CPT: 16520 x3
--- NOTE | 2023-05-29 06:23 | PCM.HP.BLA ---
History and Physical Date of Admission: 05/29/23 ADDENDUM by Liliane Park on 04/16/23 at 0928 Intake Visit Reasons: Colonoscopy Chief Complaint: colonoscopy Is patient in pain?: No Allergies No Known Allergies Allergy (Verified 04/16/23 09:27) Medications amlodipine 10 mg tablet 10 mg PO DAILY BP 09/14/15 [History Confirmed 04/16/23] bisoprolol 10 mg-hydrochlorothiazide 6.25 mg tablet 1 tab PO DAILY BP 09/14/15 [History Confirmed 04/16/23] finasteride 5 mg tablet 5 mg PO QHS PROSTATE 09/14/15 [History Confirmed 04/16/23] lisinopril 40 mg tablet 40 mg PO DAILY BP 09/14/15 [History Confirmed 04/16/23] omeprazole 20 mg capsule,delayed release 20 mg PO DAILY ACID 09/14/15 [History Confirmed 04/16/23] simvastatin 20 mg tablet 20 mg PO QHS CHOLESTEROL 09/14/15 [History Confirmed 04/16/23] tamsulosin 0.4 mg capsule 0.4 mg PO QHS URINE FLOW 09/14/15 [History Confirmed 04/16/23] venlafaxine 75 mg tablet 75 mg PO QHS DEPRESSION 09/14/15 [History Confirmed 04/16/23] levothyroxine 75 mcg tablet 100 mcg PO DAILY THYROID 09/04/17 [History Confirmed 04/16/23] glimepiride 2 mg tablet 2 mg PO DAILY DIABETES 01/04/18 [History Confirmed 04/16/23] potassium chloride 10 mEq tablet,extended release 10 meq PO DAILY 03/14/21 [History Confirmed 04/16/23] Assessment and Plan Assessment and Plan (1) History of colon polyps: Status: Acute 04/16/23 1200 <Electronically signed by Barak Montero MD> Date Barak Montero MD cc: Dr. Scooter Velasquez MD ~* Signed Intake Vital Signs 08/28/2308:20 Height 5 ft 7 in Intake Visit Reasons: RECALL LETTER/COLONOSCOPY Chief Complaint: Carotid US f/u Allergies No Known Allergies Allergy (Verified 09/25/22 12:46) ON LICENSE OF [facility] Medical History Back pain Bilateral carotid artery stenosis Cancer Constipation Depression Diabetes Dietary restriction Essential hypertension Gastric reflux GERD (gastroesophageal reflux disease) High cholesterol History of colon polyps History of edema History of hypothyroidism History of ulceration Hypertension Non-smoker Obesity Prostate disease Shortness of breath on exertion Skin lesion Squamous cell skin cancer Thyroid disease Type II diabetes mellitus Wears dentures Wears glasses Surgical History History of back surgery History of penile cancer S/p bilateral carpal tunnel release S/P cholecystectomy s/p excision left forearm lesion S/P rotator cuff repair Status post right hip replacement Family History Mother Lymphoma HypertensionFather Arthritis Social History Smoking Status: Never smoker second hand exposure: No alcohol intake: never substance use type: does not use caffeine: Yes what type of physical activity do you participate in: none frequency: does not exercise seatbelt use: always HPI HPI HPI: 82-year-old gentleman. A previous office note of March 02, 2022 reflects that I performed for him a colonoscopy March 15, 2021 notable for 10 polyps. Majority were tubular adenomas 2 were hyperplastic. His most recent colonoscopy then was April 07, 2022. 7 polyps were identified at that time. All of these were tubular adenomas.Follow-up at 1 year was recommended. The stress test this past year and did well with no signs of ischemia. He denies any bright red blood per rectum or melena. No abdominal pain. No weight change other than some slight gain. He otherwise and is doing a good quality of life Exam Const General: cooperative, healthy appearing, comfortable and no acute distress Nutritional Appearance: obese [facility] Head: normal to inspection Eyes General: appearance normal, both eyes and all related structures Neck Neck: normal visual inspection Chest Chest palpation & inspection: normal inspection of the chest Resp Effort & Inspection: normal respiratory effort Auscultation: clear to auscultation bilaterally Cardio Rate: regular rate Rhythm: regular rhythm GI Inspection: normal to inspection Other: Overweight, difficult to palpate any internal organs. Musc Cervical Spine: normal cervical lordosis Skin General: no rashes or lesions noted Neuro General: patient alert, patient awake and patient oriented x3 Extrem General: no calf tenderness Psych Appearance: grossly normal Assessment and Plan Assessment and Plan (1) History of colon polyps: Status: Acute Plan: 82-year-old gentleman enjoying a good quality of life though with a personal history of multiple colon polyps. 2 sequential colonoscopies demonstrated 10 and then 7 polyps. I recommend to him a colonoscopy with possible biopsy or polypectomy. He has had an opportunity to ask and have questions answered. I do anticipate because of his previous findings that he will have recurrent multiple polyps. Copy: Dr. Scooter Montero M.D., F.A.C.S. I have examined the patient and the H&P has been reviewed. There are no clinical changes since date of exam. Barak Montero M.D., F.A.C.S.
[2023-05-29 06:28] VITALS: BP 143/90; PULSE 64; RESP 16; TEMP 36.4; O2SAT 95; BMI 37.6
[2023-05-29] MEDS: Lactated Ringers 1,000 ML 15 ML IV (06:39)
[2023-05-29 06:41] LABS: Bedside Glucose 200 mg/dL (74-106)
[2023-05-29 07:30] VITALS: BP 143/90; BP 91/66; PULSE 56; RESP 16; TEMP 36.2; O2SAT 92
--- NOTE | 2023-05-29 07:32 | OP.CCLET_ITS ---
05/29/2023 Scooter Velasquez Re : Colonoscopy procedure for Anastacio Velasquez This procedure was performed on Monday, May 29, 2023. My impressions and recommendations are as follows: Impressions : - Non-thrombosed internal hemorrhoids and internal hemorrhoids that prolapse with straining, but require manual replacement into the anal canal (Grade III) found on digital rectal exam. - Four 2 to 3 mm polyps in the proximal ascending colon, removed with a cold biopsy forceps. Resected and retrieved. - One 4 mm polyp in the proximal transverse colon, removed with a cold biopsy forceps. Resected and retrieved. - One 6 mm polyp in the proximal transverse colon, removed with a cold snare. Resected and retrieved. Clip was placed. Recommendations : - Repeat colonoscopy in 3 years for surveillance. - Telephone my office for pathology results in 1 week. - Continue present medications. My findings are described in the full procedure note, which is enclosed. If I can be of further assistance, please feel free to contact me at Doctor phone number(s): Work: . Sincerely, Barak Montero MD 05/29/2023 7:31:43 AM This report has been signed electronically.
--- NOTE | 2023-05-29 07:32 | OP.COLON_ITS ---
Patient Name: Anastacio Mcfadden Procedure Date: 05/29/2023 6:50 AM Date of : 1940 Age: 82 Procedure: Colonoscopy Indications: High risk colon cancer surveillance: Personal history of colonic polyps Providers: Barak Montero MD Medicines: See the Anesthesia note for documentation of the administered medications Patient Profile: Last Colonoscopy: April 2022. Complications: No immediate complications. Procedure: Pre-Anesthesia Assessment: - Prior to the procedure, a History and Physical was performed, and patient medications and allergies were reviewed. The patient's tolerance of previous anesthesia was also reviewed. The risks and benefits of the procedure and the sedation options and risks were discussed with the patient. All questions were answered, and informed consent was obtained. Prior Anticoagulants: The patient has taken no anticoagulant or antiplatelet agents. ASA Grade Assessment: II - A patient with mild systemic disease. After reviewing the risks and benefits, the patient was deemed in satisfactory condition to undergo the procedure. After I obtained informed consent, the scope was passed under direct vision. Throughout the procedure, the patient's blood pressure, pulse, and oxygen saturations were monitored continuously. The adult colonoscope was introduced through the anus and advanced to the cecum, identified by appendiceal orifice and ileocecal valve. The colonoscopy was performed without difficulty. The patient tolerated the procedure well. The quality of the bowel preparation was good. The ileocecal valve and the appendiceal orifice were photographed. Scope In: 6:56:53 AM Scope Withdrawal Time 0 hours 21 minutes 38 seconds Scope Out: 7:23:16 AM Total Procedure Duration Time 0 hours 26 minutes 23 seconds Findings: The digital rectal exam findings include non-thrombosed internal hemorrhoids and internal hemorrhoids that prolapse with straining, but require manual replacement into the anal canal (Grade III). Pertinent negatives include normal prostate (size, shape, and consistency). Four sessile polyps were found in the proximal ascending colon. The polyps were 2 to 3 mm in size. These polyps were removed with a cold biopsy forceps. Resection and retrieval were complete. A 4 mm polyp was found in the proximal transverse colon. The polyp was sessile. The polyp was removed with a cold biopsy forceps. Resection and retrieval were complete. A 6 mm polyp was found in the proximal transverse colon. The polyp was sessile. The polyp was removed with a cold snare. Resection and retrieval were complete. To prevent bleeding post-intervention, one hemostatic clip was successfully placed. There was no bleeding at the end of the procedure. Impression: - Non-thrombosed internal hemorrhoids and internal hemorrhoids that prolapse with straining, but require manual replacement into the anal canal (Grade III) found on digital rectal exam. - Four 2 to 3 mm polyps in the proximal ascending colon, removed with a cold biopsy forceps. Resected and retrieved. - One 4 mm polyp in the proximal transverse colon, removed with a cold biopsy forceps. Resected and retrieved. - One 6 mm polyp in the proximal transverse colon, removed with a cold snare. Resected and retrieved. Clip was placed. Recommendation: - Repeat colonoscopy in 3 years for surveillance. - Telephone my office for pathology results in 1 week. - Continue present medications. Procedure Code(s): --- Professional --- 52863, Colonoscopy, flexible; with removal of tumor(s), polyp(s), or other lesion(s) by snare technique 25965, 59, Colonoscopy, flexible; with biopsy, single or multiple Diagnosis Code(s): --- Professional --- Z86.010, Personal history of colonic polyps K64.2, Third degree hemorrhoids D12.2, Benign neoplasm of ascending colon D12.3, Benign neoplasm of transverse colon (hepatic flexure or splenic flexure) CPT copyright 2021 [employer]. All rights reserved. The codes documented in this report are preliminary and upon network operations manager review may be revised to meet current compliance requirements. Barak Montero MD 05/29/2023 7:31:43 AM This report has been signed electronically. Number of Addenda: 0 Note Initiated On: 05/29/2023 6:50 AM
[2023-05-29 07:35] VITALS: BP 109/91; BP 143/90; PULSE 63; RESP 16; O2SAT 92
[2023-05-29 07:40] VITALS: BP 143/90; BP 91/66; PULSE 61; RESP 16; O2SAT 93
[2023-05-29 07:45] VITALS: BP 107/70; BP 143/90; PULSE 75; RESP 16; TEMP 36.1; O2SAT 93
[2023-05-29 08:11] VITALS: BP 143/90
== END 2023-05-29 08:33 | disposition home or self-care (01) ==
LOC: EN 05:59 → AC 06:00
PROVIDERS: PCP Family Medicine; Referring Provider Family Medicine; Visit Provider Surgery
PROC: 0DJD8ZZ Inspection of Lower Intestinal Tract, Via Natural or Artificial Opening Endoscopic (ICD-10-PCS; CPT 45378; principal; 2023-05-29 06:55)
DX: Z12.11 Encounter for screening for malignant neoplasm of colon (principal); E11.9 Type 2 diabetes mellitus without complications; Z86.010 Personal history of colon polyps; I10 Essential (primary) hypertension; Z79.84 Long term (current) use of oral hypoglycemic drugs; E78.00 Pure hypercholesterolemia, unspecified; Z90.49 Acquired absence of other specified parts of digestive tract; D12.3 Benign neoplasm of transverse colon; D12.2 Benign neoplasm of ascending colon; K64.2 Third degree hemorrhoids
CPT/HCPCS: 45380; 45385; 82962; 88305; J7120; J2405

== ENCOUNTER → 2023-09-17 | Outpatient (CLI) | payer MEDICARE, SELFPAY ==
--- NOTE | 2023-09-17 08:37 | CDU_ITS ---
Reason For Study: Carotid stenosis Rt. Velocities/BP Lt. Velocities/BP Prox CCA 67.4/9.7 cm/sec. Prox CCA 74.4/15.1 cm/sec. Mid CCA 102.3/13.9 cm/sec. Mid CCA 55.2/9 cm/sec. Dist CCA 49.8/14.6 cm/sec. Dist CCA 56.1/9.9 cm/sec. Prox ICA 61.9/10.2 cm/sec. Prox ICA 92.7/28.9 cm/sec. Mid ICA 37.8/13.3 cm/sec. Mid ICA 62.2/18.6 cm/sec. Dist ICA 33.4/13.3 cm/sec. Dist ICA 10.2/31.5 cm/sec. Rt. ICA/CCA = 0.92. Lt. ICA/CCA = 1.65. Prox ECA 65.2/5.8 cm/sec. Prox ECA 57.8/6.4 cm/sec. Rt. Vert. 26.4/6.2 cm/sec. Lt. Vert. 37.2/9.5 cm/sec. Right Extracranial There is intimal thickening but no significant atherosclerotic plaque noted in the right common carotid artery. The right common carotid artery is tortuous. There is heterogeneous, irregular atherosclerotic plaque noted in the right internal carotid artery. There is intimal thickening but no significant atherosclerotic plaque noted in the right external carotid artery. Antegrade flow is noted in the right vertebral artery. Rt Innominate A Distal measures approximately 1.70 x 17.9 cm in transverse view. Rt CCA Prox measures approximately 0.78 cm in longitudinal view. Rt Sub A Prox measures approximately 1.32 cm in longitudinal view. Left Extracranial There is intimal thickening but no significant atherosclerotic plaque noted in the left common carotid artery. There is heterogeneous, irregular atherosclerotic plaque noted in the left internal carotid artery. There is heterogeneous, irregular atherosclerotic plaque noted in the left external carotid artery. Antegrade flow is noted in the left vertebral artery. Procedure Carotid Duplex 27011. This is a Carotid Duplex examination using B-mode, color flow and specral Doppler. Exam performed in department. VL/Carotid Duplex Ultrasound Interpretation Summary Right innominate artery measures 1.7 x 1.79 cm in diameter Right common carotid artery measures 0.78 cm in diameter Right subclavian artery measures 1.32 cm in diameter There is notable tortuosity of the right common carotid artery Intimal thickening with less than 50% stenosis of the right internal carotid ar abhijit Less than 50% stenosis right external carotid artery Irregular plaque at the proximal left internal carotid artery with less than 50 % stenosis There is diminished flow velocity noted within the distal left internal carotid artery but upon image review that vessel is difficult to image. Patent antegrade vertebral arteries bilaterally Findings appear to be similar to the previous examination of September 15, 2022 Ordering Physician: Barak Montero Referring Physician: Scooter Velasquez Performed By: Ellyn Saucedo RVT
== END | disposition home or self-care (01) ==
PROVIDERS: Referring Provider Surgery; Visit Provider Surgery
DX: I65.23 Occlusion and stenosis of bilateral carotid arteries (principal)
CPT/HCPCS: 93880

== ENCOUNTER 2023-11-28 09:33 | Emergency (ER) | payer MEDICARE, SELFPAY ==
[2023-11-28 09:34] VITALS: BP 130/84; PULSE 79; RESP 16; TEMP 37.3; O2SAT 97; BMI 40.0
[2023-11-28 09:36] VITALS: BP 130/84; PULSE 82; RESP 16; TEMP 37.3; O2SAT 97
--- NOTE | 2023-11-28 09:51 | EDS_ITS ---
HPI History of Present Illness Chief Complaint: Abd Pain Informant: patient and spouse/S.O. Narrative Narrative: 83-year-old male presenting to the emergency room with abdominal pain. Patient states that on Sunday he developed pain on the left mid to left lower side of his abdomen. He notes he has been having some constipation and took a stool softener/laxative this morning. He states he had diarrhea shortly afterwards. He notes that he has had chills as well as fever. No fever today but did take some Tylenol yesterday for fever. He states he had a colonoscopy last fall which showed polyp. Patient denies any abdominal swelling or bloating. He does note increased belching/gas. He has had prior cholecystectomy. He states he has never had diverticulitis/colitis. No history of SBO. He is a diabetic with history of hypertension and hypercholesterolemia. He denies any urinary symptoms. He denies pressure in the rectum or rectal pain. [facility] Medical History History of stress test Bilateral carotid artery stenosis Cancer Back pain Shortness of breath on exertion Wears glasses Wears dentures Depression Thyroid disease Diabetes Prostate disease High cholesterol Dietary restriction History of ulceration Gastric reflux Non-smoker History of edema Hypertension History of colon polyps Constipation Skin lesion Squamous cell skin cancer Obesity History of hypothyroidism GERD (gastroesophageal reflux disease) Essential hypertension Type II diabetes mellitus Home Medications ?Medication ?Instructions ?Recorded ?Last Taken ?Type amlodipine 10 mg tablet 10 mg PO DAILY BP 09/14/15 05/29/23 History bisoprolol 10 1 tab PO DAILY BP 09/14/15 12/21/16 History mg-hydrochlorothiazide 6.25 mg tablet finasteride 5 mg tablet 5 mg PO QHS PROSTATE 09/14/15 12/21/16 History lisinopril 40 mg tablet 40 mg PO DAILY BP 09/14/15 05/29/23 History omeprazole 20 mg capsule,delayed 20 mg PO DAILY ACID 09/14/15 04/07/22 06:30 History release simvastatin 20 mg tablet 20 mg PO QHS CHOLESTEROL 09/14/15 12/21/16 History tamsulosin 0.4 mg capsule 0.4 mg PO QHS URINE FLOW 09/14/15 12/21/16 History venlafaxine 75 mg tablet 75 mg PO QHS DEPRESSION 09/14/15 12/21/16 History glimepiride 2 mg tablet 1 mg PO BID DIABETES 01/04/18 Unknown History potassium chloride 10 mEq 10 meq PO DAILY 03/14/21 Unknown History tablet,extended release insulin NPH human semi-syn 100 8 unit subcut BID 05/23/23 Unknown History unit/mL subcutaneous cartridge amoxicillin 875 mg-potassium 875 mg PO Q12H #20 TABLETS 11/28/23 Unknown Rx clavulanate 125 mg tablet hydrocodone-acetaminophen 5-325mg 1 tab PO Q6H PRN PRN Pain 3 days 11/28/23 U nknown Rx 5mg-325mg #10 TABLETS levothyroxine 100 mcg tablet 100 mcg PO DAILY 11/28/23 Unknown History (Synthroid) Allergy/AdvReac Type Severity Reaction Status Date / Time No Known Allergies Allergy Verified 11/28/23 09:36 Family History Mother Lymphoma Hypertension Father Arthritis Surgical History History of left hip replacement Hx of colonoscopy s/p excision left forearm lesion History of penile cancer History of back surgery Status post right hip replacement S/P rotator cuff repair S/P cholecystectomy S/p bilateral carpal tunnel release Social History Smoking Status: Never smoker second hand exposure: No alcohol intake: never substance use type: does not use caffeine: Yes what type of physical activity do you participate in: none frequency: does not exercise seatbelt use: always ROS ROS ED Constitutional Constitutional ED: Reports chills and fever(s); Denies weight loss Eyes Eyes: Denies change in vision or diplopia ENT ENT ED: Denies ear pain, rhinorrhea or sore throat Cardiovascular Cardiovascular: Denies chest pain, orthopnea, palpitations or racing heartbeat Respiratory/Chest Respiratory/Chest: Denies cough, dyspnea or orthopnea Gastrointestinal Gastrointestinal: Reports abdominal pain, constipation, diarrhea and other Details: Increased belching/gas ; Denies nausea or vomiting Genitourinary Genitourinary ED: Denies dysuria, hematuria or urinary frequency Musculoskeletal Musculoskeletal: Denies arthralgias or myalgias Integumentary Denies abscess or rash Neurologic Neurologic: Denies headache(s) or weakness Psychiatric Psychiatric: Denies anxiety, depression, suicidal ideation or suicidal thoughts Endocrine Endocrinology: Denies polydipsia, polyphagia or polyuria Allergic/Immunologic Allergic/Immunologic ED: Denies mouth swelling, tongue swelling or urticaria EXAM Physical Exam Const Vital Signs: 11/28/23 09:34 11/28/23 09:36 11/28/23 10:36 Temperature 99.1 F 99.1 F 97.2 F L Temperature Source Oral Oral Oral Pulse Rate 79 82 79 Respiratory Rate 16 16 16 Blood Pressure 130/84 H 130/84 H 134/86 H Blood Pressure Mean 99 99 102 Pulse Ox 97 97 96 Oxygen Delivery Method Room Air Room Air Room Air 11/28/23 11:00 11/28/23 13:00 11/28/23 13:38 Temperature 97.5 F L 97.5 F L 97.6 F L Temperature Source Oral Oral Pulse Rate 84 82 75 Respiratory Rate 17 16 18 Blood Pressure 132/88 H 139/75 H 143/76 H Blood Pressure Mean 102 96 98 Pulse Ox 96 97 94 Oxygen Delivery Method Room Air Room Air Positive well nourished, well developed and obese General Appearance ED: well developed Nutritional Appearance: obese HEENT Reports normocephalic, head/scalp atraumatic and moist mucous membranes Eyes PERRL and EOMs intact bilaterally Neck no lymphadenopathy, supple and no JVD Resp normal respiratory effort and clear to auscultation bilaterally Cardio regular rate, regular rhythm and no murmurs GI Inspection: Negative for abdominal distention Auscultation: normoactive bowel sounds Palpation: soft and tender LLQ; Negative for guarding or rebound tenderness present Back/Spine no CVA tenderness and normal ROM Extremity normal to inspection General Extremety ED: Negative for edema General Extremity: Negative for edema Neuro oriented x3 and CN's II-XII intact bilaterally Sensorium / Orientation: alert Motor Exam: strength 5/5 throughout Psych mental status grossly normal Mood & Affect: Negative for depressed or tearful Skin no rashes or lesions noted and no wounds MDM MDM MDM Narrative Medical decision making narrative: Differential diagnosis includes but not limited to diverticulitis colitis intra- abdominal abscess ischemic colitis kidney stone urinary retention UTI abdominal strain hernia small bowel obstruction White count is elevated 14.7 platelet count of 220 hemoglobin 13.5. Fattening is substantially elevated today at 3.65 with a BUN of 34. Potassium 3.3 sodium 132. Normal LFTs and lipase. Urinalysis with 5-[address] of the abdomen pelvis was obtained without contrast due to the patient's creatinine. This demonstrates a proximal ureteral stone which was seen several years ago as well as renal cyst. There is inflammatory changes around the sigmoid colon and some wall thickening. Given these findings and the location of his pain I think that is most likely to be a diverticulitis/colitis. Patient would like to be treated as an outpatient if possible. I think this is reasonable. Unguinal place him on Augmentin as well as some pain medication. The elevated creatinine this could be multifactorial and I would recommend primary care follow-up. He may need to see nephrology. All this was relayed to the patient and his and written down for them. History & Record Review Discussion w/independent historian: Patient and Significant other Additional record(s) reviewed:: Prior ED visit and Prior labs Lab Data Attestation: I reviewed the patient's lab results. Labs: Laboratory Results - last 24 hr 11/28/23 11/28/23 10:05 11:45 WBC 14.7 H RBC 4.60 Hgb 13.5 Hct 41.7 MCV 90.7 MCH 29.3 MCHC 32.4 RDW Std Deviation 44.9 H RDW Coeff of Reyna 13.6 Plt Count 220 MPV 10.3 Immature Gran % (Auto) 0.700 Neut % (Auto) 83.0 H Lymph % (Auto) 9.4 L [place] % (Auto) 6.1 Eos % (Auto) 0.5 Baso % (Auto) 0.3 Absolute Neuts (auto) 12.2 H Absolute Lymphs (auto) 1.37 Nucleated RBC % 0 Sodium 132 L Potassium 3.3 L Chloride 97 L Carbon Dioxide 27.0 Anion Gap 8 BUN 34 H Creatinine 3.65 H Estim Creat Clear Calc 18.70 Est GFR (MDRD) Af Amer 21 L Est GFR (MDRD) Non-Af 17 L BUN/Creatinine Ratio 9.3 L Glucose 281 H Calcium 9.0 Total Bilirubin 0.80 Direct Bilirubin 0.21 AST 13 L ALT 14 L Alkaline Phosphatase 67 Total Protein 7.8 Albumin 3.4 Globulin 4.4 H Lipase 43 Urine Color Yellow Urine Clarity Clear Urine pH 7.0 Ur Specific [place] 1.010 Urine Protein 100 H Urine Glucose (UA) 250 H Urine Ketones Negative Urine Occult Blood 150 H Urine Nitrite Negative Urine Bilirubin Negative Urine Urobilinogen Normal Ur Leukocyte Esterase 25 H Urine RBC 5-10 SEEN Urine WBC 0-5 SEEN Ur Squamous Epith Cells 0-5 SEEN Urine Bacteria 0 SEEN Urine Mucus 0 SEEN Radiography Diagnostic Testing: Clinical Impression(s) from Imaging Studies Abdomen/Pelvis CT 11/28/23 11:10 IMPRESSION: Mild degree of sigmoid diverticulitis. Stable left adrenal nodule. Stable 6.1 mm pancreas and the proximal portion of the left ureter just distal to the left renal pelvis. Multiple bilateral renal cysts. Electronically Signed: Armand Patrick MD at 11:59 EDT , Discharge Plan Triage Chief Complaint: Abd Pain ED Provider: Feliz Santoyo Dx/Rx/DC Orders Clinical Impression: Diverticulitis, Kidney cysts, Type II diabetes mellitus Instructions: Diverticulitis Dc, Simple Kidney Cysts Prescriptions: New hydrocodone-acetaminophen 5-325 mg tablet 1 tab PO Q6H PRN PRN (Reason: Pain) 3 Days Qty: 10 0RF amoxicillin-pot clavulanate 875-125 mg tablet 875 mg PO Q12H Qty: 20 0RF No Action venlafaxine 75 MG tablet 75 mg PO QHS Patient Comments: DEPRESSION bisoprolol-hydrochlorothiazide 1 TAB tablet 1 tab PO DAILY Patient Comments: BP tamsulosin 0.4 MG capsule 0.4 mg PO QHS Patient Comments: URINE amlodipine 10 MG tablet 10 mg PO DAILY Patient Comments: BP simvastatin 20 MG tablet 20 mg PO QHS Patient Comments: CHOLESTEROL lisinopril 40 MG tablet 40 mg PO DAILY Patient Comments: BP finasteride 5 MG tablet 5 mg PO QHS omeprazole 20 MG capsule 20 mg PO DAILY Patient Comments: REFLUX glimepiride 2 MG tablet 1 mg PO BID potassium chloride 10 mEq Tablet Extended Release 10 meq PO DAILY insulin NPH human semi-syn 100 unit/mL cartridge 8 unit subcut BID levothyroxine [Synthroid] 100 mcg tablet 100 mcg PO DAILY Primary Care Provider: Scooter Velasquez Referrals: [place],Scooter, MD [Primary Care Provider] - 1 Week Activity Restrictions/Additional Instructions: It was noted today that your creatinine is 3.65. This is elevated compared to the last reading I have from last year. This can be from several issues including diabetes and kidney cyst. I would urge you to follow-up with your primary care doctor to discuss this. Your abdominal pain today I believe is related to diverticulitis. You are being placed on antibiotics and receiving pain medication. Please monitor for any worsening pain as it may represent a complication of diverticulitis. Worsening symptoms to include fever dehydration myopathy of any concerns please return to emergency for repeat evaluation. Print Language: Montene[place]in Disposition Disposition: Home, Self Care
[2023-11-28] MEDS: 0.9% Normal Saline (1000mL) 1,000 ML 999 ML IV (10:24)
[2023-11-28 10:27] LABS: Absolute Lymphocyte Count 1.37 X10^3/uL (0.83-4.51); Absolute Neutrophil Count 12.2 X10^3/uL (2.0-7.7); Basophil# 0.04 X10^3/uL; Basophil% 0.3 % (0-1); Eosinophil# 0.07 X10^3/uL; Eosinophils% 0.5 % (0-5); Hematocrit 41.7 % (40-54); Hemoglobin 13.5 g/dL (13.0-16.5); Lymphocyte # 1.37 X10^3/ul (0.83-4.51); Lymphocyte % 9.4 % (19-41); Mean Corp Hgb Conc 32.4 g/dL (32-36); Mean Corpuscular Hgb 29.3 pg (27.0-32.0); Mean Corpuscular Volume 90.7 fL (80-94); Mean Platelet Vol. 10.3 fl (6.2-12.0); Monocyte% 6.1 % (0-10); NRBC Flagged by Analyzer 0 % (0-5); Neutrophil # 12.17 X10^3/uL (2.7-7.7); Platelet Count 220 K/mm3 (150-450); RBC Distribution Width CV 13.6 % (11.6-14.6); RBC Distribution Width SD 44.9 fl (35.1-43.9); White Blood Count 14.7 K/mm3 (4.4-11.0)
[2023-11-28 10:36] VITALS: BP 134/86; PULSE 79; RESP 16; TEMP 36.2; O2SAT 96
[2023-11-28 10:56] LABS: AST(SGOT) 13 U/L (15-37); Alanine Aminotransfer ALT/SGPT 14 U/L (16-61); Albumin, Serum 3.4 g/dL (3.2-5.0); Alkaline Phosphatase 67 U/L (45-117); Anion Gap 8 (5-15); BUN 34 mg/dL (7-18); BUN/Creat Ratio 9.3 RATIO (10-20); Bilirubin, Direct 0.21 mg/dL (0.00-0.30); Chloride 97 mmol/L (98-107); Creatinine, Serum 3.65 mg/dL (0.70-1.30); EST Glomerular Filtration Rate 17 mL/min (>60); Est Glom Filt Rate - Afr Amer 21 mL/min (>60); Globulin 4.4 g/dL (2.2-4.2); Glucose 281 mg/dL (74-106); Lipase 43 U/L (13-75); Potassium 3.3 mmol/L (3.5-5.1); Protein, Total 7.8 g/dL (6.4-8.2); Sodium Level 132 mmol/L (136-145)
[2023-11-28 11:00] VITALS: BP 132/88; PULSE 84; RESP 17; TEMP 36.4; O2SAT 96
--- NOTE | 2023-11-28 11:10 | CT_ITS ---
STUDY: CT ABDOMEN AND PELVIS WITHOUT CONTRAST REASON FOR EXAM: Male, 83 years old. Diverticulitis abdominal pain RADIATION DOSAGE (If Supplied By Facility): CTDIvol = ( 20.72 ) mGy, DLP = ( 1102.45 ) mGycm TECHNIQUE: Transaxial images were obtained from the dome of the diaphragm to the symphysis pubis without oral contrast, and without intravenous contrast. Sagittal and coronal images were reconstructed. Individualized dose optimization techniques were used for this CT. COMPARISON: Comparison is made with prior study dated March 19, 2019. FINDINGS: Minimal increased markings in the posterior aspect of the lingular segment of the left upper lobe as well as in the left lower lobe suggestive of atelectasis and/or scarring. Coronary artery calcification. Normal liver. There are surgical clips in the gallbladder fossa consistent with a prior cholecystectomy. Normal spleen. Normal pancreas. Stable 2.5 cm left adrenal nodule suggestive of possible adenoma. Once again, there are multiple bilateral renal cysts. Stable 6.1 mm calculus in the proximal portion of the left ureter just distal to the left renal pelvis. Normal visualized stomach. Normal small intestine. There is diverticulosis, with thickening of the colon wall, and pericolonic inflammation changes consistent with a mild degree of acute diverticulitis. The appendix is visualized and appears normal. There is diffuse atherosclerotic calcification of the abdominal aorta and its major visceral branches, without a demonstrated aneurysm. Normal inferior vena cava. Normal retroperitoneum. Normal urinary bladder. Normal abdominal wall. There are diffuse degenerative changes of the visualized lumbar spine. Patient is status post fusion at the L4-L5 level. Bilateral hip replacement. CT/Abdomen/Pelvis without Cont IMPRESSION: Mild degree of sigmoid diverticulitis. Stable left adrenal nodule. Stable 6.1 mm pancreas and the proximal portion of the left ureter just distal to the left renal pelvis. Multiple bilateral renal cysts. Electronically Signed: Armand Patrick MD at 11:59 EDT ,
[2023-11-28 11:50] LABS: Bacteria 0 SEEN /hpf (None Seen); Mucous, Urine 0 SEEN /hpf (<or=2+)
[2023-11-28 12:04] LABS: Glucose, Dipstick 250 mg/dl (Normal); Ketone-Dipstick Negative (Negative); Leukocyte Esterase-Dipstick 25 /ul (Negative); Nitrite-Dipstick Negative (Negative); Occult Blood-Urine 150 /ul (Negative); Protein-Dipstick 100 mg/dl (Negative); Urine Bilirubin Dipstick Negative (Negative); Urine Urobilinogen Normal (Normal)
[2023-11-28 12:42] LABS: Color, Urine Yellow (Yellow); Urine Clarity Clear (Clear)
[2023-11-28 13:00] VITALS: BP 139/75; PULSE 82; RESP 16; TEMP 36.4; O2SAT 97
[2023-11-28 13:15] LABS: Red Blood Cells-Urine 5-10 SEEN /hpf (0-5); Squamous Epithelial Cells - UA 0-5 SEEN /hpf (0-5); White Blood Cells 0-5 SEEN /hpf (0-5)
[2023-11-28 13:38] VITALS: BP 143/76; PULSE 75; RESP 18; TEMP 36.4; O2SAT 94
== END 2023-11-28 14:01 | disposition home or self-care (01) ==
PROVIDERS: Emergency Provider Emergency Medicine; PCP Family Medicine; Visit Provider Emergency Medicine
DX: K57.32 Diverticulitis of large intestine without perforation or abscess without bleeding (principal); E11.9 Type 2 diabetes mellitus without complications; Z79.4 Long term (current) use of insulin; N28.1 Cyst of kidney, acquired; I10 Essential (primary) hypertension; R14.2 Eructation; E78.00 Pure hypercholesterolemia, unspecified; K59.00 Constipation, unspecified; Z79.899 Other long term (current) drug therapy; Z79.84 Long term (current) use of oral hypoglycemic drugs
CPT/HCPCS: 74176; 80048; 80076; 81001; 83690; 85025; 96360; 99283; J7030; A4216

== ENCOUNTER → 2024-04-14 | Outpatient (CLI) | payer MEDICARE, SELFPAY ==
[2024-04-14 10:01] LABS: Absolute Lymphocyte Count 1.89 X10^3/uL (0.83-4.51); Absolute Neutrophil Count 5.8 X10^3/uL (2.0-7.7); Basophil# 0.06 X10^3/uL; Basophil% 0.7 % (0-1); Eosinophil# 0.37 X10^3/uL; Eosinophils% 4.3 % (0-5); Hematocrit 40.6 % (40-54); Hemoglobin 12.9 g/dL (13.0-16.5); Lymphocyte # 1.89 X10^3/ul (0.83-4.51); Lymphocyte % 21.7 % (19-41); Mean Corp Hgb Conc 31.8 g/dL (32-36); Mean Corpuscular Hgb 29.6 pg (27.0-32.0); Mean Corpuscular Volume 93.1 fL (80-94); Mean Platelet Vol. 9.8 fl (6.2-12.0); Monocyte# 0.54 X10^3/uL; Monocyte% 6.2 % (0-10); NRBC Flagged by Analyzer 0 % (0-5); Neutrophil # 5.79 X10^3/uL (2.7-7.7); Neutrophil % 66.6 % (47-70); Platelet Count 224 K/mm3 (150-450); RBC Distribution Width CV 13.5 % (11.6-14.6); Red Blood Count 4.36 M/mm3 (4.6-6.2); White Blood Count 8.7 K/mm3 (4.4-11.0)
[2024-04-14 10:52] LABS: Hemoglobin A1c 7.8 % (3.8-5.6)
[2024-04-14 11:06] LABS: ALB/GLOB Ratio 0.9 RATIO (0.9-2.4); AST(SGOT) 13 U/L (15-37); Alanine Aminotransfer ALT/SGPT 15 U/L (16-61); Albumin, Serum 3.7 g/dL (3.2-5.0); Alkaline Phosphatase 68 U/L (45-117); Anion Gap 5 (5-15); BUN 29 mg/dL (7-18); BUN/Creat Ratio 12.5 RATIO (10-20); Calcium,Total 9.3 mg/dL (8.5-10.1); Chloride 102 mmol/L (98-107); Cholesterol 165 mg/dL (200); Creatinine, Serum 2.32 mg/dL (0.70-1.30); EST Glomerular Filtration Rate 29 mL/min (>60); Est Glom Filt Rate - Afr Amer 35 mL/min (>60); Globulin 4.2 g/dL (2.2-4.2); Glucose 184 mg/dL (74-106); High Density Lipoprotein 35 mg/dL; PSA,Total- Diagnostic 1.37 ng/mL (0.0-4.0); Potassium 3.1 mmol/L (3.5-5.1); Protein, Total 7.9 g/dL (6.4-8.2); Sodium Level 138 mmol/L (136-145); T4 Free Direct 0.54 ng/dL (0.76-1.46); Triglycerides 178 mg/dL; Very Low Density Lipoprotein 36 mg/dL (5-40)
[2024-04-14 11:57] LABS: Microalbumin:Creatinine Ratio 790.5 mg/g CRE (<30 mg/g CRE)
== END | disposition home or self-care (01) ==
LOC: LAB 09:21
PROVIDERS: PCP Family Medicine; Referring Provider Urology; Visit Provider Registered Nurse
DX: I12.9 Hypertensive chronic kidney disease with stage 1 through stage 4 chronic kidney disease, or unspecified chronic kidney disease (principal); I48.0 Paroxysmal atrial fibrillation; E11.22 Type 2 diabetes mellitus with diabetic chronic kidney disease; N18.30 Chronic kidney disease, stage 3 unspecified; E78.5 Hyperlipidemia, unspecified; E03.9 Hypothyroidism, unspecified; R97.20 Elevated prostate specific antigen [PSA]
CPT/HCPCS: 36415; 80053; 80061; 82043; 82570; 83036; 84153; 84439; 84443; 85025

== ENCOUNTER → 2024-06-11 | Outpatient (CLI) | payer MEDICARE, SELFPAY ==
[2024-06-11 13:23] LABS: PTHIN 163.4 pg/mL (18.4-80.1)
[2024-06-11 13:35] LABS: Albumin, Serum 3.7 g/dL (3.2-5.0); BUN 28 mg/dL (7-18); BUN/Creat Ratio 13.7 RATIO (10-20); Calcium,Total 9.3 mg/dL (8.5-10.1); Chloride 104 mmol/L (98-107); Creatinine, Serum 2.05 mg/dL (0.70-1.30); EST Glomerular Filtration Rate 33 mL/min (>60); Est Glom Filt Rate - Afr Amer 40 mL/min (>60); Glucose 169 mg/dL (74-106); Potassium 3.2 mmol/L (3.5-5.1); Sodium Level 138 mmol/L (136-145)
== END | disposition home or self-care (01) ==
LOC: POLAB3 12:15
PROVIDERS: PCP Family Medicine; Visit Provider Internal Medicine Nephrology
DX: N18.4 Chronic kidney disease, stage 4 (severe) (principal)
CPT/HCPCS: 36415; 80069; 82306; 83970

== ENCOUNTER → 2024-08-20 | Outpatient (CLI) | payer MEDICARE, SELFPAY ==
[2024-08-20 10:24] LABS: Albumin, Serum 3.5 g/dL (3.2-5.0); BUN 36 mg/dL (7-18); Calcium,Total 9.1 mg/dL (8.5-10.1); Chloride 103 mmol/L (98-107); Creatinine, Serum 2.12 mg/dL (0.70-1.30); EST Glomerular Filtration Rate 32 mL/min (>60); Est Glom Filt Rate - Afr Amer 39 mL/min (>60); Glucose 153 mg/dL (74-106); Phosphorus 3.3 mg/dL (2.5-4.9); Potassium 3.5 mmol/L (3.5-5.1); Sodium Level 138 mmol/L (136-145)
== END | disposition home or self-care (01) ==
LOC: LAB 08:49
PROVIDERS: PCP Family Medicine; Referring Provider Internal Medicine Nephrology; Visit Provider Internal Medicine Nephrology
DX: N18.4 Chronic kidney disease, stage 4 (severe) (principal)
CPT/HCPCS: 36415; 80069

== ENCOUNTER → 2024-10-27 | Outpatient (CLI) | payer MEDICARE, SELFPAY ==
--- NOTE | 2024-10-27 09:13 | CDU_ITS ---
Reason For Study Reason For Study: Carotid stenosis Rt. Velocities/BP Lt. Velocities/BP Prox CCA 130.2/13.8 cm/sec. Prox CCA 68.3/13.5 cm/sec. Mid CCA 69.1/13.9 cm/sec. Mid CCA 60.7/11.6 cm/sec. Dist CCA 53.2/10.2 cm/sec. Dist CCA 61.7/9.7 cm/sec. Prox ICA 63.6/9.7 cm/sec. Prox ICA 101.1/26.2 cm/sec. Mid ICA 51.3/17.3 cm/sec. Mid ICA 49.5/11.4 cm/sec. Dist ICA 40.9/11.6 cm/sec. Dist ICA 53.2/16.3 cm/sec. Rt. ICA/CCA = 0.92. Lt. ICA/CCA = 1.67. Prox ECA 72.8/4.1 cm/sec. Prox ECA 77.8/8.8 cm/sec. Rt. Vert. 30.8/8.8 cm/sec. Lt. Vert. 35.2/12.5 cm/sec. Right Extracranial There is intimal thickening but no significant atherosclerotic plaque noted in the right common carotid artery. There is heterogeneous, irregular atherosclerotic plaque noted in the right internal carotid artery. There is intimal thickening but no significant atherosclerotic plaque noted in the right external carotid artery. Antegrade flow is noted in the right vertebral artery. Rt Innominate A Distal measures approximately 1.73 x 1.76 cm in transverse view. Rt CCA Prox measures approximately 0.88 x 0.88 cm in transverse view. Rt Subclavian A Prox measures approximately 1.36 cm in longitudinal view. Left Extracranial There is intimal thickening but no significant atherosclerotic plaque noted in the left common carotid artery. There is heterogeneous, irregular atherosclerotic plaque noted in the left internal carotid artery. There is heterogeneous, irregular atherosclerotic plaque noted in the left external carotid artery. Antegrade flow is noted in the left vertebral artery. Procedure Carotid Duplex [id number]. This is a Carotid Duplex examination using B-mode, color flow and specral Doppler. Exam performed in department. VL/Carotid Duplex Ultrasound Interpretation Summary Mild (<50%) stenosis right extracranial internal carotid. Mild (<50%) stenosis left extracranial internal carotid. Patent and antegrade vertebrals bilaterally. 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
== END | disposition home or self-care (01) ==
PROVIDERS: PCP Family Medicine; Referring Provider Surgery Trauma Surgery; Visit Provider Surgery Trauma Surgery
DX: I65.22 Occlusion and stenosis of left carotid artery (principal)
CPT/HCPCS: 93880

== ENCOUNTER → 2025-04-08 | Outpatient (CLI) | payer MEDICARE, SELFPAY ==
[2025-04-08 09:32] LABS: Creatinine, Urine (random) 181.00 mg/dL (39.00-259.00)
[2025-04-08 09:41] LABS: PTHIN 113 pg/mL (11-61)
[2025-04-08 09:44] LABS: Microalbumin,Random Urine 655.0 mg/L (<20 mg/L)
[2025-04-08 10:03] LABS: Albumin, Serum 3.9 g/dL (3.4-4.8); Anion Gap 13 (5-15); BUN 33 mg/dL (4-19); BUN/Creat Ratio 17.5 RATIO (10-20); Calcium,Total 9.3 mg/dL (7.6-11.0); Carbon Dioxide 23.8 mmol/L (21.0-32.0); Chloride 103 mmol/L (98-108); Glucose 134 mg/dL (70-99); Potassium 3.9 mmol/L (3.3-5.1); Vitamin D,25 Hydroxy 25.2 ng/mL (30-100)
== END | disposition home or self-care (01) ==
LOC: LAB 08:53
PROVIDERS: PCP Family Medicine; Referring Provider Internal Medicine Nephrology; Visit Provider Internal Medicine Nephrology
DX: E11.22 Type 2 diabetes mellitus with diabetic chronic kidney disease (principal); N18.32 Chronic kidney disease, stage 3b; E55.9 Vitamin D deficiency, unspecified; N25.81 Secondary hyperparathyroidism of renal origin
CPT/HCPCS: 36415; 80069; 82043; 82306; 82570; 83970